=== PATIENT | female | born 1995 | race Caucasian/White ===

== ENCOUNTER → 2017-07-09 09:53 | Outpatient (CLI) | payer OTHER, SELFPAY ==
[2017-07-16 04:15] LABS: AFP MoM Value 1.14 (.); AFP Value-EIA 35.8 ng/mL (.); Comment Report (.); DIA MoM Value 1.21 (.); DIA Value-EIA 211.34 pg/mL (.); DSR (By Age) 1100 (.); DSR (Second Trimester) 7688 (.); Gestat. Age Based On As provided (.); Insulin Dep Diabetes No (.); Maternal Age At EDD 23.1 YEARS (.); hCG MoM 1.36 (.); hCG Value 51890 mIU/mL (.)
== END ==
PROVIDERS: Family Provider Nurse Practitioner Adult Health; PCP Nurse Practitioner Adult Health; Visit Provider Nurse Practitioner Women's Health
DX: Z34.90 Encounter for supervision of normal pregnancy, unspecified, unspecified trimester (principal)
CPT/HCPCS: 36415; 82105; 82677; 84702; 86336

== ENCOUNTER → 2017-08-03 | Outpatient (CLI) | payer OTHER, SELFPAY ==
--- NOTE | 2017-08-03 12:24 | US_ITS ---
STUDY: SECOND AND THIRD TRIMESTER OBSTETRICAL ULTRASOUND REASON FOR EXAM: Female, 21 years old. Routine survey. LMP: March 16, 2017. TECHNIQUE: Transabdominal PRIOR ULTRASOUND: None. FINDINGS: There is a single intrauterine fetus. The fetus is in a cephalic presentation. There is demonstrated cardiac activity with a heart rate of 142 bpm. There is a normal amniotic fluid volume. The largest amniotic fluid pocket measures 7.0 cm x 6.6 cm. The placenta is posterior in location and is not low lying. There are Grade 0 placental changes. The cervix measures 4.0 cm in length. The adnexal regions are not visualized. BIOMETRY: BPD: 4.61 cm: 20 weeks, 0 days HC: 17.21 cm: 19 weeks, 6 days AC: 14.24 cm: 19 weeks, 5 days FL: 3.13 cm: 19 weeks, 6 days CI: 79% FL/BPD: 68% FL/HC: FL/AC: 22% HC/AC: 1.21 age by current US: 19 weeks, 6 days. EASTON by current US: December 22, 2017. Estimated weight: 306 grams, +/- 45 grams, 28 %. Age by LMP: 20 weeks, 0 days. EASTON by LMP: December 21, 2017.. ANATOMY: Gender: Male Cranium: Normal lateral ventricles. Normal choroid plexus. Normal cerebellum. Normal cisterna magna. Normal face, nose and lips. Chest: Normal 4-chamber heart. Abdomen/Pelvis: Normal diaphragm. Normal stomach. Normal abdominal wall. Normal cord insertion. Normal 3 vessel cord. Normal kidneys. Normal bladder. Spine: Normal cervical spine. Normal thoracic spine. Normal lumbar spine. Normal sacrum. Extremities: Normal bilateral upper extremities. Normal bilateral lower extremities. US/OB Anatomy Scan IMPRESSION: Single live intrauterine gestation with a mean gestational age of 19 weeks and 6 days. Electronically Signed: Jewel Carvajal MD at 11:10 EST Tel [phone], Service support ,
== END | disposition home or self-care (01) ==
LOC: USHP 12:22
PROVIDERS: Family Provider Nurse Practitioner Adult Health; PCP Nurse Practitioner Adult Health; Visit Provider Nurse Practitioner Women's Health
DX: Z34.90 Encounter for supervision of normal pregnancy, unspecified, unspecified trimester (principal); Z3A.00 Weeks of gestation of pregnancy not specified
CPT/HCPCS: 76805

== ENCOUNTER → 2017-09-28 08:51 | Outpatient (CLI) | payer OTHER, SELFPAY ==
[2017-09-28 10:48] LABS: Absolute Lymphocyte Count 1.21 X10^3/ul (0.83-4.51); Absolute Neutrophil Count 7.5 X10^3/uL (2.0-7.7); Basophil# 0.04 X10^3/uL; Basophil% 0.4 % (0-1); Eosinophil# 0.09 X10^3/uL; Eosinophils% 0.9 % (0-5); Hematocrit 34.8 % (37-47); Hemoglobin 11.6 g/dl (12.0-15.0); Lymphocyte # 1.21 X10^3/ul (4.0); Lymphocyte % 12.2 % (19-41); Mean Corp Hgb Conc 33.3 g/gl (32-36); Mean Corpuscular Hgb 29.2 pg (27.0-32.0); Mean Corpuscular Volume 87.7 fL (81-99); Mean Platelet Vol. 10.7 fl (6.2-12.0); Monocyte# 0.92 X10^3/uL; Monocyte% 9.3 % (0-10); Neutrophil # 7.53 X10^3/uL (2.7-7.7); Platelet Count 231 K/mm3 (150-450); RBC Distribution Width CV 12.8 % (11.6-14.6); RBC Distribution Width SD 39.6 fl (35.1-43.9); Red Blood Count 3.97 M/mm3 (4.2-5.4); White Blood Count 9.9 K/mm3 (4.4-11.0)
[2017-09-28 10:49] LABS: POSITIVE COUNT NO; POSITIVE DIFFERENTIAL NO; POSITIVE MORPHOLOGY NO
[2017-09-28 11:19] LABS: Glucose Challenge Gest 1H 50g 122 mg/dL (70-140)
== END ==
PROVIDERS: Family Provider Nurse Practitioner Adult Health; PCP Nurse Practitioner Adult Health; Visit Provider Obstetrics & Gynecology
DX: Z34.02 Encounter for supervision of normal first pregnancy, second trimester (principal)
CPT/HCPCS: 36415; 82950; 85025; 86850; 86900

== ENCOUNTER → 2017-11-23 14:52 | Outpatient (CLI) | payer OTHER, SELFPAY ==
[2017-11-23 18:05] LABS: Group B Strep DNA By PCR Negative (Negative); Internal Control PASS; Probe Check PASS; Specimen Processing Control PASS
== END ==
PROVIDERS: Family Provider Nurse Practitioner Adult Health; PCP Nurse Practitioner Adult Health; Visit Provider Obstetrics & Gynecology
DX: Z34.90 Encounter for supervision of normal pregnancy, unspecified, unspecified trimester (principal)
CPT/HCPCS: 87081; 87653

== ENCOUNTER 2017-12-07 12:05 | Outpatient (CLI) | payer OTHER, SELFPAY ==
[2017-12-07 13:07] LABS: Hematocrit 35.2 % (37-47); Hemoglobin 11.3 g/dl (12.0-15.0); Mean Corp Hgb Conc 32.1 g/gl (32-36); Mean Corpuscular Hgb 25.9 pg (27.0-32.0); Mean Corpuscular Volume 80.7 fL (81-99); Mean Platelet Vol. 11.2 fl (6.2-12.0); Platelet Count 233 K/mm3 (150-450); RBC Distribution Width CV 13.6 % (11.6-14.6); Red Blood Count 4.36 M/mm3 (4.2-5.4); White Blood Count 9.1 K/mm3 (4.4-11.0)
[2017-12-07 13:12] LABS: Scan Indicated on CBC? Y/N NO
[2017-12-07 13:13] LABS: Partial Thromboplast Time 25.9 Seconds (24.1-36.2); Prothrombin Time (Protime)PT. 12.8 SECONDS (11.7-14.9)
[2017-12-07 13:16] LABS: AST(SGOT) 18 U/L (15-37); Alanine Aminotransfer ALT/SGPT 15 U/L (13-56); Creatinine, Serum 0.61 mg/dL (0.55-1.02); EST Glomerular Filtration Rate 129 mL/min (>60); Est Glom Filt Rate - Afr Amer 157 mL/min (>60); Estimated Creatinine Clearance 0.19 ml/min; Uric Acid 5.4 mg/dL (2.6-6.0)
[2017-12-07 13:21] LABS: Protein, Urine (Random) < 6.0 mg/dL (<11.9)
--- NOTE | 2017-12-10 02:49 | OB.TRI.NOTE ---
History of Present Illness Date of Service: 12/07/17 Was patient seen by the physician?: No Reason For Visit: ELEVATED BP Allergies No Known Allergies Allergy (Verified 12/07/17 12:35) - Pertinent Past Medical History Medical History: Past Medical History (Last Reviewed 12/07/17 @ 11:23 by Kaylah Graff) Frequent headaches Migraine Surgical History: Past Surgical History (Last Reviewed 12/07/17 @ 11:23 by Kaylah Graff) Adnoids History of tonsillectomy History of wisdom tooth extraction, class II edentulism NST - FHR Rate Baby A Baseline: 130 Variability:: Moderate Accelerations:: 15 x 15 Decelerations:: None NST Reactive:: Yes FHR Category:: Category I Uterine Activity:: none Impression/Plan initially elevated bps repeat normal stable no cerivlca change dc home
== END 2017-12-07 14:30 | disposition home or self-care (01) ==
LOC: WPOUT 12:07 → WP 12:07
PROVIDERS: Family Provider Nurse Practitioner Adult Health; PCP Nurse Practitioner Adult Health; Visit Provider Obstetrics & Gynecology
DX: O26.899 Other specified pregnancy related conditions, unspecified trimester (principal); Z3A.00 Weeks of gestation of pregnancy not specified; R03.0 Elevated blood-pressure reading, without diagnosis of hypertension
CPT/HCPCS: 36415; 59025; 59050; 82565; 82570; 84156; 84450; 84460; 84550; 85027; 85610; 85730; 99218; A4216; G0378

== ENCOUNTER 2017-12-11 18:00 | Inpatient (IN) | payer OTHER, SELFPAY ==
[2017-12-11 18:29] VITALS: BMI 32.2
[2017-12-11] MEDS: Lactated Ringers 1,000 ML 50 ML IV ×2 (18:35→20:02)
[2017-12-11 18:52] LABS: Hematocrit 34.9 % (37-47); Hemoglobin 11.4 g/dl (12.0-15.0); Mean Corp Hgb Conc 32.7 g/gl (32-36); Mean Corpuscular Volume 79.5 fL (81-99); Mean Platelet Vol. 10.9 fl (6.2-12.0); Platelet Count 239 K/mm3 (150-450); RBC Distribution Width CV 13.8 % (11.6-14.6); RBC Distribution Width SD 39.4 fl (35.1-43.9); Red Blood Count 4.39 M/mm3 (4.2-5.4); White Blood Count 15.9 K/mm3 (4.4-11.0)
[2017-12-11 18:53] LABS: Scan Indicated on CBC? Y/N NO
[2017-12-11] MEDS: Ondansetron 4 MG/2 ML Vial IV (19:00)
[2017-12-11] MEDS: fentaNYL-bupivacaine (epidural) 100 ML BAG EPIDURAL (19:50)
[2017-12-11] MEDS: Mag Hydrox/Al Hydrox/Simeth 30 ML UDC PO ×2 (20:18→23:25)
--- NOTE | 2017-12-11 21:14 | PCM.HP.OB ---
- Problem List (1) Contraception management Status: Acute Qualifiers: Comment: condoms (2) Rh negative status during Status: Acute Qualifiers: Comment: rhogam PRN and at 28 weeks (3) Supervision of normal Status: Acute Qualifiers: Comment: PRR EASTON 12/21/17 boy Nishant Cristian History Date of Admission: 12/11/17 Final EASTON: 12/21/17 Gestational age: 38 Weeks and 4 Days History of this : This is a 22 year-old, at 38 weeks gestational age presents IAL 6 cm Medical History: Medical History (Last Reviewed 12/07/17 @ 11:23 by Kaylah Graff) Frequent headaches R51 Migraine G43.909 Surgical History: Surgical History (Last Reviewed 12/07/17 @ 11:23 by Kaylah Graff) Adnoids History of tonsillectomy Z90.89 History of wisdom tooth extraction, class II edentulism K08.492 Allergies No Known Allergies Allergy (Verified 12/07/17 12:35) Home Medications: Home Medications vitamin,calcium,cxnuigky-vujc-vgfcb acid tablet 1 tab PO QDAY 05/21/17 Ranitidine HCl [Acid Control] 150 mg PO BID 12/11/17 Smoking Status: Never smoker Alcohol: None Number of Fetus(es): 1 Heart Tracin mod viktor reactive no decels cat I TOCO Analysis: q2-3 History Past Pregnancies: Past Pregnancies Delivery Date Name GA/Weeks Outcome Route Weight Infant Gender Labor Length Anesthesia Delivery Location Provider FOB Labs: Mom[facility] Labs & Results 12/11/17 12/11/17 18:35 18:35 WBC 15.9 H RBC 4.39 Hgb 11.4 L Hct 34.9 L MCV 79.5 L MCH 26.0 L MCHC 32.7 RDW 13.8 RDW Differential 39.4 Plt Count 239 MPV 10.9 Blood Type A NEGATIVE Antibody Screen NEGATIVE Course Did the patient receive Yes care? Labs Blood Type: A RH: NEGATIVE RPR/VDRL/Syphilis Nonreactive Rubella status Immune HbSAg Negative Date Done: 05/17/17 Chlamydia Negative Gonorrhea Negative HIV/AIDS Non-Reactive Group B Strep: Negative Current Obstetrical History Gestational Diabetes No Incompetent Cervix No Infertility No IUGR No Macrosomia No Hypertension/Pre-eclampsia No Placenta Previa/Abruption No PTL/PROM No Uterine anomaly No Oligohydramnios No Polyhydramnios No Multiple gestation No Past Medical History Asthma No Diabetes No Hypertension No Heart disease No Mitral valve prolapse No Neurologic/Seizure disorder/ No Migraines Kidney disease No Liver disease No Varicosities No Clotting disorders/Hx of DVT No Thyroid Dysfunction No Other medical diseases No Psychiatric disorders No Major trauma No Abnormal PAP smear No Sleep apnea No Mammogram in the last 2 years No Social History Marital Status: Alleged father Cristian Hx Smoking No Smoking Status Never smoker How long have you used no substances (years)? What date/time did you last no use any of the above? Expected Infant Delivery Method: Spontaneous Vaginal Review of Systems Constitutional: Denies: Fever, Malaise Eyes: Denies: Blurred vision, Vision Change HEENT: Denies: Head Aches, Visual Changes Cardiovascular: Denies: Chest Pain, Palpitations Respiratory: Denies: Cough, Shortness of Breath, Wheezing Gastrointestinal: Denies: Abdominal Pain, Diarrhea, Nausea, Vomiting Genitourinary: Denies: Dysuria, Hematuria Musculoskeletal: Denies: Joint Pain, Muscle pain Skin: Denies: Lesions, Rash Neurological: Denies: Blurred vision, Focal weakness, Headaches Psychiatric: Denies: Anxiety, Depression Endocrine: Denies: Heat/ Cold Intolerance Hematologic/ Lymphatic: Denies: Easy Bruising, Easy Bleeding Physical Exam General: Alert, Cooperative, No apparent distress HEENT: Atraumatic, Normocephalic. Negative for: Thyromegaly, Lymphadenopathy Cardiovascular: Regular rate Lungs: Normal air movement Abdomen: Soft, Non Tender, Gravid Neurological: Deep Tendon Reflexes 2+/4 and Symmetrical, Neuro grossly intact. Negative for: Clonus [employer]: Normal external genitalia. Negative for: Vulvar lesions Estimated gestational size: Appropriate for gestational size Presentation: Cephalic Assessment/Plan All Active Problems (Last Reviewed 12/07/17 @ 11:23 by Kaylah Graff) Segmental and somatic dysfunction of sacral region (Acute) Contraception management (Acute) Segmental and somatic dysfunction of thoracic region (Acute) Segmental and somatic dysfunction of lumbar region (Acute) Segmental and somatic dysfunction of cervical region (Acute) Rh negative status during (Acute) Supervision of normal (Acute) This is a 22 year-old, at 38 weeks gestational age presents IAL exp management gbs neg epidural rh negative
[2017-12-12] MEDS: Oxytocin 30 units/NS 500 ml 30 UNITS/500 ML IV.SOLN 334 UNITS IV (00:55)
--- NOTE | 2017-12-12 01:16 | PCM.OB.VAG ---
- Problem List (1) Contraception management Status: Acute Qualifiers: Comment: condoms (2) Rh negative status during Status: Acute Qualifiers: Comment: rhogam PRN and at 28 weeks (3) Supervision of normal Status: Acute Qualifiers: Comment: PRR [place] 12/21/17 carmela Dillard Cristian Vaginal Delivery Maternal Presentation: Active Labor 22 yo @ 38w4d presetns IAL Amniotic Membrane Rupture Type: Artificial Amniotic Fluid Description: Clear Final EASTON: 12/21/17 Gestational age: 38 Weeks and 5 Days Date of Procedure: 12/12/17 Pre-Operative Diagnosis: ial Post-Operative Diagnosis: same Surgery/ Procedure Performed: Spontaneous Vaginal Delivery Type of Anesthesia: Epidural Description of Procedure: Patient began pushing and delivered the head in the RAFAEL presentation. The head was delivered atraumatically. The anterior and posterior shoulders delivered without complication followed by the rest of the and the was placed on the maternal abdomen. Delayed cord clamping was employed for approximately 60 seconds. Cord was clamped and cut and gentle traction was applied to the cord and the placenta delivered spontaneously immediately following it was noted to be intact with three-vessel cord. The perineum and vagina were inspected and noted to have a secodn laceration repaired in the usual fashion with 3-0 vicryl rapide. EBL was 300 cc. Patient and infant tolerated delivery well. Presentation: RAFAEL Placental Delivery Description: Spontaneous Placenta Disposition: [facility] Cord Vessel Description: 3 Vessels Cord Entanglement: None Estimated Blood Loss: 300 Infant A gender: Male Episiotomy Description: None Laceration: Perineal Extension/lac, 2nd degree Medications given after delivery: IV Pitocin Complications: None
[2017-12-12] MEDS: Oxytocin 30 units/NS 500 ml 30 UNITS/500 ML IV.SOLN 167 UNITS IV (01:25)
[2017-12-12] MEDS: Naproxen 250 MG Tablet PO (07:50)
[2017-12-12 07:58] VITALS: BP 111/53; PULSE 96; RESP 18; TEMP 37.1; O2SAT 95
--- NOTE | 2017-12-12 08:59 | NURSING ---
Patient up to the bathroom and called out that she was dizzy. Remained conscious but was transferred back to bed via wheelchair with staff assistance. Given 8 oz. apple juice and encouraged to eat breakfast before getting up again. Instructed patient to call for assistance when up the next time.
[2017-12-12] MEDS: Prenatal Vits Tablet 1 TABLET PO (09:58)
[2017-12-12] MEDS: Famotidine 20 MG Tablet PO ×2 (09:58→21:40)
[2017-12-12 12:00] VITALS: BP 106/60; PULSE 86; RESP 16; TEMP 36.3; O2SAT 99
[2017-12-12] MEDS: Acetaminophen 500 MG Tablet 1000 MG PO (12:58)
--- NOTE | 2017-12-12 13:04 | NURSING ---
Patient ambulating in room indepedently with no complaints of dizziness.
[2017-12-12 16:00] VITALS: BP 120/72; PULSE 73; RESP 16; TEMP 36.6; O2SAT 97
[2017-12-12 21:30] VITALS: BP 120/66; PULSE 84; RESP 16; TEMP 36.6
[2017-12-13 01:00] VITALS: BP 108/59; PULSE 74; RESP 18; TEMP 36.4
--- NOTE | 2017-12-13 07:59 | PCM.PN.OB ---
Subjective: No SOB, CP, nausea. - Physical Exam General: Alert, Oriented x3 Abdomen: Soft, Non Tender, - - FF below U Vital Signs Temp Pulse Resp BP Pulse Ox 97.6 F L 74 18 108/59 L 97 12/13/17 01:00 12/13/17 01:00 12/13/17 01:00 12/13/17 01:00 12/12/17 16:00 Oxygen Delivery Method Room Air Weight: 187 lb 9.814 oz Body Mass Index (BMI) 32.2 Intake and Output for Last 24 Hours 12/11/17 12/12/17 12/13/17 23:59 23:59 23:59 Intake Total 1865 / 1865 Output Total 850 / 850 Balance 1015 / 1015 Medical Necessity - Tobacco Use Smoking Status: Never smoker Assessment/Plan All Active Problems (Last Reviewed 12/07/17 @ 11:23 by Kaylah Graff) Segmental and somatic dysfunction of sacral region (Acute) Contraception management (Acute) Segmental and somatic dysfunction of thoracic region (Acute) Segmental and somatic dysfunction of lumbar region (Acute) Segmental and somatic dysfunction of cervical region (Acute) Rh negative status during (Acute) Supervision of normal (Acute) PPD #1 Doing well. Routine care. RH neg.
[2017-12-13] MEDS: Famotidine 20 MG Tablet PO ×2 (08:27→20:56)
[2017-12-13] MEDS: Prenatal Vits Tablet 1 TABLET PO (08:52)
[2017-12-13 08:54] VITALS: BP 125/75; PULSE 85; RESP 16; TEMP 36.6; O2SAT 97
[2017-12-13] MEDS: Senna/Docusate Sodium 1 Tablet PO (09:01)
[2017-12-13 12:45] VITALS: BP 131/74; PULSE 88; RESP 16; TEMP 36.5; O2SAT 97
[2017-12-13 20:50] VITALS: BP 135/66; PULSE 87; RESP 16; TEMP 36.9
[2017-12-13] MEDS: Acetaminophen 500 MG Tablet 1000 MG PO (20:56)
[2017-12-14 02:30] VITALS: BP 116/60; PULSE 71; RESP 16; TEMP 36.4
[2017-12-14 08:00] VITALS: BP 124/73; PULSE 93; RESP 18; TEMP 36.9
[2017-12-14] MEDS: Senna/Docusate Sodium 1 Tablet PO (10:10)
[2017-12-14] MEDS: Naproxen 250 MG Tablet PO (10:10)
[2017-12-14] MEDS: Prenatal Vits Tablet 1 TABLET PO (10:10)
--- NOTE | 2017-12-14 11:09 | PCM.PN.OB ---
Subjective: No SOB, CP, nausea. - Physical Exam General: Alert, Oriented x3 Abdomen: Soft, Non Tender, - - FF below U Vital Signs Temp Pulse Resp BP Pulse Ox 98.5 F 93 18 124/73 H 97 12/14/17 08:00 12/14/17 08:00 12/14/17 08:00 12/14/17 08:00 12/13/17 12:45 Oxygen Delivery Method Room Air Weight: 187 lb 9.814 oz Body Mass Index (BMI) 32.2 Intake and Output for Last 24 Hours 12/12/17 12/13/17 12/14/17 23:59 23:59 23:59 Intake Total 1865 / 1865 Output Total 850 / 850 Balance 1015 / 1015 Medical Necessity - Tobacco Use Smoking Status: Never smoker Assessment/Plan All Active Problems (Last Reviewed 12/07/17 @ 11:23 by Kaylah Graff) Segmental and somatic dysfunction of sacral region (Acute) Contraception management (Acute) Segmental and somatic dysfunction of thoracic region (Acute) Segmental and somatic dysfunction of lumbar region (Acute) Segmental and somatic dysfunction of cervical region (Acute) Rh negative status during (Acute) Supervision of normal (Acute) PPD #2: Doing well. Routine care. Home today
--- NOTE | 2017-12-14 11:10 | PCM.DCVAG ---
Additional Instructions: If you experience any of the following, contact your healthcare provider. Bleeding that soaks a pad every hour for 2 hours Fever 100.4 or higher Unrelieved incision or abdominal pain Swelling, redness, discharge or bleeding from your incision or episiotomy site Your incision begins to separate Problems urinating (including inability to urinate or burning while urinating). Visual changes Severe headache Flu-like symptoms Pain or redness in one of both of your breasts Pain, warmth, tenderness or swelling in your legs, especially the calf area Frequent nausea and vomiting Symptoms of depression or anxiety If you experience any of the following, call 911 or go to the nearest Emergency Room. Chest pain Problems breathing Seizure activity Partial or complete paralysis of a body part, slurred speech, weakness or drooping of the face, or a sudden inability to walk or hold your balance Allergies/Adverse Reactions: Allergies No Known Allergies Allergy (Verified 12/07/17 12:35) Medications to take at Discharge vitamin,calcium,umduakei-iapu-atjzm acid tablet 1 tab PO QDAY 05/21/17 Ranitidine HCl [Acid Control] 150 mg PO BID 12/11/17 Norethindrone [Shanthi] 0.35 mg PO DAILY #28 tab 12/14/17 Primary Care Physician: Radha Cardenas [Primary Care Provider] - Test Results:
--- NOTE | 2017-12-14 11:14 | DCINST_ITS ---
Additional Instructions: If you experience any of the following, contact your healthcare provider. * Bleeding that soaks a pad every hour for 2 hours * Fever 100.4 or higher * Unrelieved incision or abdominal pain * Swelling, redness, discharge or bleeding from your incision or episiotomy site * Your incision begins to separate * Problems urinating (including inability to urinate or burning while urinating) . * Visual changes * Severe headache * Flu-like symptoms * Pain or redness in one of both of your breasts * Pain, warmth, tenderness or swelling in your legs, especially the calf area * Frequent nausea and vomiting * Symptoms of depression or anxiety If you experience any of the following, call 911 or go to the nearest Emergency Room. * Chest pain * Problems breathing * Seizure activity * Partial or complete paralysis of a body part, slurred speech, weakness or drooping of the face, or a sudden inability to walk or hold your balance Allergies/Adverse Reactions: Allergies No Known Allergies Allergy (Verified 12/07/17 12:35) Medications to take at Discharge vitamin,calcium,tnnxvkea-kxvt-pcysb acid tablet 1 tab PO QDAY 05/21/17 Ranitidine HCl [Acid Control] 150 mg PO BID 12/11/17 Norethindrone [Shanthi] 0.35 mg PO DAILY #28 tab 12/14/17 Primary Care Physician: Radha Cardenas [Primary Care Provider] - Test Results:
[2017-12-14] MEDS: Famotidine 20 MG Tablet PO (11:52)
[2017-12-14 14:20] VITALS: BP 130/77; PULSE 92; RESP 18; TEMP 36.8
== END 2017-12-14 15:55 | disposition home or self-care (01) | DRG 775 ==
PROVIDERS: Admitting Provider Obstetrics & Gynecology; Family Provider Nurse Practitioner Adult Health; PCP Nurse Practitioner Adult Health; Visit Provider Obstetrics & Gynecology
DX: O26.899 Other specified pregnancy related conditions, unspecified trimester (principal); M99.01 Segmental and somatic dysfunction of cervical region; M99.02 Segmental and somatic dysfunction of thoracic region; M99.03 Segmental and somatic dysfunction of lumbar region; M99.04 Segmental and somatic dysfunction of sacral region; O70.1 Second degree perineal laceration during delivery; Z67.91 Unspecified blood type, Rh negative; Z3A.38 38 weeks gestation of pregnancy; Z37.0 Single live birth
CPT/HCPCS: 59050; 85027; 86850; 86900; 99218; J7120; G0378; J2405

== ENCOUNTER → 2020-02-15 16:42 | Outpatient (CLI) | payer OTHER, SELFPAY ==
[2020-02-15 14:01] VITALS: BMI 27.1
[2020-02-19 03:07] LABS: Chlamydia By Nucleic Acid AMP Negative (Negative)
[2020-02-19 07:56] LABS: Gonococcus By Nucleic Acid AMP Negative (Negative)
[2020-02-21 19:10] LABS: HPV Reflexed? NOT INDICATED
== END ==
PROVIDERS: PCP Obstetrics & Gynecology; Visit Provider Obstetrics & Gynecology
DX: Z12.4 Encounter for screening for malignant neoplasm of cervix (principal); Z11.3 Encounter for screening for infections with a predominantly sexual mode of transmission
CPT/HCPCS: 87491; 87591; 88175; G0145

== ENCOUNTER → 2020-02-28 08:25 | Outpatient (CLI) | payer OTHER, SELFPAY ==
[2020-02-15 14:01] VITALS: BMI 27.1
[2020-02-28 09:43] LABS: Absolute Lymphocyte Count 1.79 X10^3/uL (0.83-4.51); Absolute Neutrophil Count 6.5 X10^3/uL (2.0-7.7); Basophil# 0.03 X10^3/uL; Basophil% 0.3 % (0-1); Eosinophil# 0.14 X10^3/uL; Eosinophils% 1.6 % (0-5); Hematocrit 39.3 % (37-47); Hemoglobin 12.5 g/dL (12.0-15.0); Lymphocyte # 1.79 X10^3/ul (4.0); Mean Corp Hgb Conc 31.8 g/dL (32-36); Mean Corpuscular Hgb 26.2 pg (27.0-32.0); Mean Corpuscular Volume 82.4 fL (81-99); Mean Platelet Vol. 10.4 fl (6.2-12.0); Monocyte# 0.45 X10^3/uL; NRBC Flagged by Analyzer 0 % (0-5); Neutrophil # 6.51 X10^3/uL (2.7-7.7); Neutrophil % 72.5 % (47-70); Platelet Count 268 K/mm3 (150-450); RBC Distribution Width SD 42.1 fl (35.1-43.9); Red Blood Count 4.77 M/mm3 (4.2-5.4)
[2020-02-28 10:47] LABS: HIV - WCH Non-Reactive (Nonreactive); Hepatitis B Surface Antigen Non-Reactive (Nonreactive); Hepatitis C Antibody Non-Reactive (Nonreactive); Rubella IgG 38.4 IU/mL
[2020-02-29 04:31] LABS: Rapid Plasmin Reagin (RPR) NONREACTIVE (NONREACTIVE)
== END ==
PROVIDERS: PCP Nurse Practitioner Adult Health; Referring Provider Obstetrics & Gynecology; Visit Provider Obstetrics & Gynecology
DX: Z34.90 Encounter for supervision of normal pregnancy, unspecified, unspecified trimester (principal)
CPT/HCPCS: 36415; 85025; 86592; 86703; 86762; 86803; 86850; 86900; 86901; 87340

== ENCOUNTER → 2020-03-13 | Outpatient (CLI) | payer OTHER, SELFPAY ==
[2020-03-13 11:10] VITALS: BMI 27.1
[2020-03-13 13:35] LABS: Amphetamine Urine VISTA NEGATIVE (<1000 ng/mL); Barbiturate Urine VISTA NEGATIVE (< 200 ng/mL); Benzodiazepine Urine VISTA NEGATIVE (< 200 ng/mL); Cocaine Urine VISTA NEGATIVE (< 300 ng/mL); Ecstacy Urine VISTA NEGATIVE (< 500 ng/mL); Methadone Urine VISTA NEGATIVE (< 300 ng/mL); PCP Urine VISTA NEGATIVE (< 25 ng/mL); THC Urine VISTA NEGATIVE (< 50 ng/mL); Vista UDS pH Range 6
== END | disposition home or self-care (01) ==
LOC: LABSPEC 12:20
PROVIDERS: PCP Nurse Practitioner Adult Health; Referring Provider Obstetrics & Gynecology; Visit Provider Obstetrics & Gynecology
DX: Z34.90 Encounter for supervision of normal pregnancy, unspecified, unspecified trimester (principal)
CPT/HCPCS: 80307; 87086; 87088

== ENCOUNTER → 2020-05-08 | Outpatient (CLI) | payer OTHER, SELFPAY ==
[2020-05-08 11:19] VITALS: BMI 28.8
[2020-05-08 14:26] LABS: Amphetamine Urine VISTA NEGATIVE (<1000 ng/mL); Barbiturate Urine VISTA NEGATIVE (< 200 ng/mL); Benzodiazepine Urine VISTA NEGATIVE (< 200 ng/mL); Cocaine Urine VISTA NEGATIVE (< 300 ng/mL); Ecstacy Urine VISTA NEGATIVE (< 500 ng/mL); Methadone Urine VISTA NEGATIVE (< 300 ng/mL); PCP Urine VISTA NEGATIVE (< 25 ng/mL); THC Urine VISTA NEGATIVE (< 50 ng/mL); Vista UDS pH Range 7
[2020-05-08 19:11] LABS: Chlamydia Trachomatis by PCR Negative (Negative); Neisserai gonorrhoeae by PCR Negative (Negative); Probe Check PASS; Sample Adequacy Control PASS; Specimen Processing Control PASS
== END | disposition home or self-care (01) ==
LOC: LABSPEC 13:18
PROVIDERS: PCP Nurse Practitioner Adult Health; Referring Provider Obstetrics & Gynecology; Visit Provider Obstetrics & Gynecology
DX: Z34.90 Encounter for supervision of normal pregnancy, unspecified, unspecified trimester (principal)
CPT/HCPCS: 80307; 87491; 87591

== ENCOUNTER → 2020-07-03 09:07 | Outpatient (CLI) | payer OTHER, SELFPAY ==
[2020-06-05 09:56] VITALS: BMI 29.4
[2020-07-03 09:29] LABS: Absolute Lymphocyte Count 1.47 X10^3/uL (0.83-4.51); Absolute Neutrophil Count 5.7 X10^3/uL (2.0-7.7); Basophil# 0.03 X10^3/uL; Basophil% 0.4 % (0-1); Eosinophil# 0.12 X10^3/uL; Eosinophils% 1.5 % (0-5); Hematocrit 30.5 % (37-47); Lymphocyte # 1.47 X10^3/ul (4.0); Lymphocyte % 18.5 % (19-41); Mean Corp Hgb Conc 32.8 g/dL (32-36); Mean Corpuscular Volume 82.4 fL (81-99); Mean Platelet Vol. 10.7 fl (6.2-12.0); Monocyte# 0.47 X10^3/uL; Monocyte% 5.9 % (0-10); NRBC Flagged by Analyzer 0 % (0-5); Neutrophil # 5.66 X10^3/uL (2.7-7.7); Neutrophil % 71.4 % (47-70); Platelet Count 239 K/mm3 (150-450); RBC Distribution Width CV 13.3 % (11.6-14.6); White Blood Count 7.9 K/mm3 (4.4-11.0)
[2020-07-03 10:03] LABS: Glucose Challenge Gest 1H 50g 149 mg/dL (70-140)
== END ==
PROVIDERS: PCP Nurse Practitioner Adult Health; Referring Provider Nurse Practitioner Women's Health; Visit Provider Nurse Practitioner Women's Health
DX: Z34.90 Encounter for supervision of normal pregnancy, unspecified, unspecified trimester (principal); Z13.1 Encounter for screening for diabetes mellitus
CPT/HCPCS: 36415; 82950; 85025; 86850; 86900; 86901; 87086; 87088

== ENCOUNTER → 2020-07-10 06:46 | Outpatient (CLI) | payer OTHER, SELFPAY ==
[2020-07-03 09:30] VITALS: BMI 29.9
[2020-07-10 08:01] LABS: Glucose GTT-Gestation. Fasting 92 mg/dL (<105)
[2020-07-10 08:30] LABS: Glucose GTT-Gestational 1 Hr 132 mg/dL (<190)
[2020-07-10 09:35] LABS: Glucose GTT-Gestational 2 Hr 97 mg/dL (<165)
[2020-07-10 11:05] LABS: Glucose GTT-Gestational 3 Hr 125 L (<145)
== END ==
PROVIDERS: PCP Nurse Practitioner Adult Health; Referring Provider Obstetrics & Gynecology; Visit Provider Obstetrics & Gynecology
DX: O99.810 Abnormal glucose complicating pregnancy (principal); Z3A.00 Weeks of gestation of pregnancy not specified
CPT/HCPCS: 36415; 82951; 82952

== ENCOUNTER → 2020-08-16 08:38 | Outpatient (CLI) | payer OTHER, SELFPAY ==
[2020-07-31 09:56] VITALS: BMI 30.7
[2020-08-16 09:18] LABS: Absolute Lymphocyte Count 1.74 X10^3/uL (0.83-4.51); Absolute Neutrophil Count 6.3 X10^3/uL (2.0-7.7); Basophil# 0.03 X10^3/uL; Basophil% 0.3 % (0-1); Eosinophils% 1.1 % (0-5); Hematocrit 30.9 % (37-47); Hemoglobin 9.3 g/dL (12.0-15.0); Lymphocyte # 1.74 X10^3/ul (4.0); Lymphocyte % 19.2 % (19-41); Mean Corp Hgb Conc 30.1 g/dL (32-36); Mean Corpuscular Volume 79.6 fL (81-99); Mean Platelet Vol. 10.7 fl (6.2-12.0); Monocyte# 0.57 X10^3/uL; Monocyte% 6.3 % (0-10); NRBC Flagged by Analyzer 0 % (0-5); Neutrophil # 6.29 X10^3/uL (2.7-7.7); Neutrophil % 69.7 % (47-70); Platelet Count 230 K/mm3 (150-450); RBC Distribution Width CV 14.6 % (11.6-14.6); Red Blood Count 3.88 M/mm3 (4.2-5.4)
== END ==
PROVIDERS: PCP Nurse Practitioner Adult Health; Referring Provider Obstetrics & Gynecology; Visit Provider Obstetrics & Gynecology
DX: O99.019 Anemia complicating pregnancy, unspecified trimester (principal); Z3A.00 Weeks of gestation of pregnancy not specified
CPT/HCPCS: 36415; 85025

== ENCOUNTER → 2020-08-28 | Outpatient (CLI) | payer OTHER, SELFPAY ==
[2020-08-28 11:03] VITALS: BMI 32.6
== END | disposition home or self-care (01) ==
LOC: LABSPEC 13:02
PROVIDERS: PCP Nurse Practitioner Adult Health; Visit Provider Obstetrics & Gynecology
DX: Z34.90 Encounter for supervision of normal pregnancy, unspecified, unspecified trimester (principal)
CPT/HCPCS: 87081

== ENCOUNTER → 2020-09-06 14:42 | Outpatient (CLI) | payer OTHER, SELFPAY ==
[2020-08-28 11:03] VITALS: BMI 32.6
[2020-09-06 13:58] VITALS: BMI 33.3
== END ==
PROVIDERS: Nurse Practitioner Women's Health; PCP Nurse Practitioner Adult Health; Visit Provider Obstetrics & Gynecology
DX: Z34.80 Encounter for supervision of other normal pregnancy, unspecified trimester (principal)
CPT/HCPCS: 87635; C9803; U0002

== ENCOUNTER 2020-09-12 01:18 | Inpatient (IN) | payer OTHER, SELFPAY ==
[2020-09-11 11:12] VITALS: BMI 33.3
[2020-09-12] VITALS (50 sets, daily range): BP systolic 98–137; BP diastolic 57–85; PULSE 64–100; RESP 16–18; TEMP 36.4–37.4; O2SAT 97–100; BMI 33.0
[2020-09-12] MEDS: Lactated Ringers 500 ML 999 ML IV (01:25)
[2020-09-12 01:43] LABS: Absolute Lymphocyte Count 2.08 X10^3/uL (0.83-4.51); Absolute Neutrophil Count 7.4 X10^3/uL (2.0-7.7); Basophil# 0.04 X10^3/uL; Basophil% 0.4 % (0-1); Eosinophil# 0.13 X10^3/uL; Eosinophils% 1.2 % (0-5); Hematocrit 29.3 % (37-47); Lymphocyte # 2.08 X10^3/ul (4.0); Lymphocyte % 19.2 % (19-41); Mean Corp Hgb Conc 30.7 g/dL (32-36); Mean Corpuscular Volume 74.9 fL (81-99); Mean Platelet Vol. 11.2 fl (6.2-12.0); Monocyte% 9.2 % (0-10); NRBC Flagged by Analyzer 0 % (0-5); Neutrophil # 7.38 X10^3/uL (2.7-7.7); Neutrophil % 68.1 % (47-70); Platelet Count 221 K/mm3 (150-450); RBC Distribution Width CV 15.4 % (11.6-14.6); Red Blood Count 3.91 M/mm3 (4.2-5.4); White Blood Count 10.8 K/mm3 (4.4-11.0)
[2020-09-12] MEDS: Lactated Ringers 1,000 ML 200 ML IV ×2 (02:00→07:04)
[2020-09-12] MEDS: fentaNYL-bupivacaine (epidural) 100 ML BAG EPIDURAL ×2 (02:52→07:02)
[2020-09-12] MEDS: Famotidine 20 MG Tablet 40 MG PO (04:27)
[2020-09-12] MEDS: Oxytocin 30 units/NS 500 ml 30 UNITS/500 ML IV.SOLN IV (04:30)
[2020-09-12] MEDS: Mag Hydrox/Al Hydrox/Simeth 30 ML UDC PO (06:15)
--- NOTE | 2020-09-12 07:50 | PCM.HPOB.BLA ---
- Problem List (1) Active labor Status: Acute (2) 36 weeks gestation of Status: Acute Comment: Scheduled 09/06 at 2:20pm (3) Abnormal glucose affecting Status: Acute Comment: NL 3gtt (4) Anemia affecting Status: Acute Qualifiers: Comment: Add Fe daily (5) Encounter for prophylactic administration of RhoGAM Status: Acute Comment: 07/03/20 (6) History of tetanus, diphtheria, and acellular pertussis booster vaccination (Tdap) Status: Acute Comment: 07/03/20 (7) Influenza vaccine administered Status: Acute Comment: 02/15/2020 SC (8) Lab test negative for COVID-19 virus Status: Acute (9) Negative GBS Status: Acute (10) Status: Acute Qualifiers: Comment: declined genetic, carrier, and ntd screening. nl anatomy. (11) Rh negative status during Status: Acute Qualifiers: Comment: rhogam PRN and given at 28 weeks. (12) Supervision of normal Status: Acute Qualifiers: Comment: PRR EASTON 09/21/19 boy Hilario MONTEIRO dillard Cristian (13) UTI in Status: Acute Qualifiers: Comment: tx 03/14; repeat negative History and Physical Date of Admission: 09/12/20 Intake Vital Signs 09/11/20 Height 5 ft 4 in 09/11/20 Weight: 194 lb 6 oz 09/11/20 BMI 33.3 09/11/20 BP 120/90 H Intake Visit Reasons: 38 WK OB Land[employer] Technician Required: No Is patient in pain?: No Allergies No Known Allergies Allergy (Verified 09/11/20 11:12) Medications prenat.vits,sana,[id number] 1 tab PO QDAY 05/21/17 [History Confirmed 09/11/20] famotidine 20 mg tablet 20 mg PO BID #60 tab 07/19/20 [Rx Confirmed 09/11/20] Last Menstral Period: 12/15/19 Zika: Zika virus screening: Negative : No PFSH PFSH Medical History Frequent headaches (Acute) Migraine (Acute) Surgical History H/O adenoidectomy (Acute) History of tonsillectomy (Acute) History of wisdom tooth extraction, class II edentulism (Acute) Family History Grandmother Diabetes Breast cancer Aunt Breast cancer Mother Diabetes Gestational Grandfather Colon cancer Social History (Updated 09/11/20 @ 11:[address] 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 Date Name GA/Weeks Outcome Route Bth Weight Infant Gen Labor Lgth Anesthesia Del Locatn Provider FOB Unknown 2017 Dillard 38 live - full term 7lbs Male 8 epidural [facility] Cristian Delivery Date: No complications to Jannie Loaiza HPI 38 WK OB: Details: SHIRLENE CALDERON is a 24 year old who presents for routine OB visit. OB Visit EASTON Calculator Estimated Delivery Date Method Current WG Current Estimate 09/20/20 LMP (Certain) 38w 5d Other Estimates 09/21/20 Ultrasound #1 38w 4d Expected Delivery Route/Plan Labor Preferences- CB/BF classes: no labor support person: Cristian labor intervention preferences: open to standard interventions pain management options preferred: epidural cut cord/dad catch: yes : yes PP control planned: pill discussed possible routes of delivery and associated risks: discussed possible delivery modalities and possible indications for each including R/B/A of , VAVD, FAVD and CS. questions answered. special requests: none Specific Issue/Plans flu vaccine: given tdap vaccine: given rhogam: given LARC form signed: given movement and labor precautions reviewed. Problem list reviewed and updated with the most current plan of care details and appropriate orders placed. Relevant counseling for the gestational age provided. Continue routine care and follow up unless otherwise noted in visit notes/problem list details Initial Weight: 158 lb Date EGA Weight BP Urine Prot Glucose FHR FuHt Pres Dilation Effaced St Visit Note 02/15/20 8w 6d 158 lb (+0 oz) 124/82 SM- CRL SM- CRL 1.5cm cons with lmp 03/13/20 12w 5d 160 lb 4 oz (+2 lb 4 oz) 118/68 Negative Negative 166 MH_no VB, LOF. Nausea improved. Anatomy US with MFM scheduled. 04/12/20 17w 0d 164 lb (+6 lb) 132/74 150 SM- no vb cramping 05/08/20 20w 5d 168 lb (+10 lb) 110/82 150 GP - no cramping or bleeding. Discussed precautions with previa. 06/05/20 24w 5d 171 lb 6 oz (+13 lb 6 oz) 116/66 Negative Negative 155 24 GP - no LOF, VB, DFM, ctx. Having a boy! Anatomy normal. GCT next visit. GP - no LOF, VB, DFM, ctx. Having a boy! Anatomy normal except previa noted - discussed repeat scan at 28w. GCT next visit. 07/03/20 28w 5d 174 lb 8 oz (+16 lb 8 oz) 104/58 Negative Negative 141 28 MH-No VB, LOF. Good FM. 28 wk labs. Larc. Rhogam, tdap. Anemic-start FE. MH-No VB, LOF. Good FM. 28 wk labs. Larc. Rhogam, tdap. Anemic-start FE. Rpt urine culture. Previa resolved. 07/19/20 31w 0d 175 lb (+17 lb) 136/72 Negative Negative 140 31 SM- no vb lof good fm no regular ctx 07/31/20 32w 5d 179 lb (+21 lb) 124/72 Negative Negative 140 32 GP - no LOF, VB, DFM, ctx. Has had 2 vasovagal episodes without loss of consciousness while showering. Discussed increased fluids. If continues, will consider cardiology. 08/16/20 35w 0d 186 lb (+28 lb) 134/62 Negative Negative 140 36 Cephalic SM- no vb lof good fm n oregular ctx 08/28/20 36w 5d 190 lb 2 oz (+32 lb 2 oz) 128/74 Negative Negative 140 37 Cephalic 4 60 -2 GP - no LOF, VB, DFM, regular ctx. GBS done today. COVID testing with next visit. 09/06/20 38w 0d 194 lb (+36 lb) 134/88 Negative Negative 135 38 Cephalic 5 70 -2 GP - no LOF, VB, DFM, ctx. Membranes swept today. 09/11/20 38w 5d 194 lb 6 oz (+36 lb 6 oz) 120/90 Negative Negative 135 39 Cephalic 5 70 -2 GP - no LOF, VB, DFM, ctx. Scheduled for IOL in am on 09/13 if no labor before then. ACOG First Trimester First Trimester: Desire for , Alcohol, Illicit/Recreational Drug/Substance Use, Intimate Partner Violence, Barriers to care, Unstable Housing, Communication Barriers, Environmental/Work Hazards, Anticipated Course of Care, Toxoplasmosis Precations, Use of Any medications, Sexual activity, Exercise, Dental Care, Sauna/Hot tub use, Seat Belt use, Childbirth classes/Hospital facilities, , Travel, Indications for US and Screening for Aneuploidy; discussed Tobacco Cessation Diagnostics Diagnostics Diagnostics Blood Type A NEGATIVE 07/03/20 Antibody Screen NEGATIVE 07/03/20 Gest Glucose Tolerance MG/DL 07/10/20 Glucose 1 Hr 50 gm 149 mg/dL (70-140) H 07/03/20 Hgb 9.3 g/dL (12.0-15.0) L 08/16/20 Hct 30.9 % (37-47) L 08/16/20 Details: HIV: Urine Culture: Sequential Screen: NIPT Screen: ROS Const Reports system reviewed and no additional complaints, except as docu Eyes Reports system reviewed and no additional complaints, except as docu ENT Reports system reviewed and no additional complaints, except as docu Card Reports system reviewed and no additional complaints, except as docu Resp Reports system reviewed and no additional complaints, except as docu GI Reports system reviewed and no additional complaints, except as docu Reports system reviewed and no additional complaints, except as docu, Denies abnormal vaginal bleeding, Denies painful urination, Denies pelvic pain, Denies vaginal discharge, Denies vaginal odor, Denies vaginal itching Musc Reports system reviewed and no additional complaints, except as docu Skin/Breast Reports system reviewed and no additional complaints, except as docu Neuro Yes system reviewed and no additional complaints, except as docu Psych Reports system reviewed and no additional complaints, except as docu Endo Reports system reviewed and no additional complaints, except as docu Exam Const General: cooperative, healthy appearing, comfortable, no acute distress, well developed, well groomed Nutritional Appearance: average body habitus, well nourished Orientation: alert, awake, oriented x3 HENOH Head: normal to inspection, normocephalic, atraumatic Eyes Pupils: PERRL, accommodation normal Resp Effort & Inspection: normal respiratory effort, able to speak in complete sentences, symmetric chest movement Cardio Rate: regular rate GI Palpation: soft, no guarding, no masses, nontender Skin General: no rashes or lesions noted, elasticity normal, turgor normal Neuro General: alert, awake, oriented x3 Cranial Nerves: CN's II-XI intact bilaterally, sense of smell intact, PERRL, accommodation normal, EOM intact bilaterally Speech: speech normal Gait: normal gait Psych Appearance: grossly normal, well kempt Mental Status: mental status grossly normal Mood: congruent mood Affect: normal affect Speech and Movement: speech and movement normal Attitude: cooperative Thought Process: normal Thought Content: normal Judgment: judgment good Results POC Urinalysis 2 Dip (Clinic) Office Urine Glucose Negative Last Edit by Belem Szymanski on 09/11/20 11:23 Office Urine Protein Negative Last Edit by Belem Szymanski on 09/11/20 11:23 Assessment & Plan Problems 1. Lab test negative for COVID-19 virus Z03.818 2. Negative GBS 3. 36 weeks gestation of Z3A.36 Scheduled 09/06 at 2:20pm 4. Abnormal glucose affecting O99.810 NL 3gtt 5. Encounter for prophylactic administration of RhoGAM Z29.13 07/03/20 6. History of tetanus, diphtheria, and acellular pertussis booster vaccination (Tdap) Z92.29 07/03/20 7. Anemia affecting in third trimester O99.013 Add Fe daily 8. Urinary tract infection in mother during third trimester of O23.43 tx 03/14; repeat negative 9. Influenza vaccine administered Z23 02/15/2020 SC 10. Rh negative status during in third trimester O26.893 rhogam PRN and given at 28 weeks. 11. 38 weeks gestation of Z3A.38 declined genetic, carrier, and ntd screening. nl anatomy. 12. Encounter for supervision of other normal in third trimester Z34.83 PRR EASTON 09/21/19 boy Hilario MONTEIRO eleanor Cristian Patient presents IAL, plan expectant management for , pitocin/AROM PRN if needed. Pain management: plans epidural. GBS negative Management of any complications: none I have reviewed the [facility] and made any clinically relevant updates. UPDATE- I have seen the patient and performed any clinically relevant updates to the history and physical exam. Molly Vaughan MD
[2020-09-12] MEDS: Oxytocin 30 units/NS 500 ml 30 UNITS/500 ML IV.SOLN 334 UNITS IV (10:35)
--- NOTE | 2020-09-12 12:26 | PCM.OPRPT ---
Problem List (1) Active labor Status: Acute (2) 36 weeks gestation of Status: Acute Comment: Scheduled 09/06 at 2:20pm (3) Abnormal glucose affecting Status: Acute Comment: NL 3gtt (4) Anemia affecting Status: Acute Qualifiers: Comment: Add Fe daily (5) Encounter for prophylactic administration of RhoGAM Status: Acute Comment: 07/03/20 (6) History of tetanus, diphtheria, and acellular pertussis booster vaccination (Tdap) Status: Acute Comment: 07/03/20 (7) Influenza vaccine administered Status: Acute Comment: 02/15/2020 SC (8) Lab test negative for COVID-19 virus Status: Acute (9) Negative GBS Status: Acute (10) Status: Acute Qualifiers: Comment: declined genetic, carrier, and ntd screening. nl anatomy. (11) Rh negative status during Status: Acute Qualifiers: Comment: rhogam PRN and given at 28 weeks. (12) Supervision of normal Status: Acute Qualifiers: Comment: PRR EASTON 09/21/19 boy Hilario webster Cristian (13) UTI in Status: Acute Qualifiers: Comment: tx 03/14; repeat negative Vaginal Delivery Maternal Presentation: Active Labor 24-year-old at 38 weeks gestation admitted in active labor. Patient was augmented with artificial rupture membranes and Pitocin. Amniotic Membrane Rupture Type: Artificial Amniotic Fluid Description: Clear Final EASTON: 09/20/20 Gestational age: 38 Weeks and 6 Days Date of Procedure: 09/12/20 Pre-Operative Diagnosis: Term , active labor Post-Operative Diagnosis: Same Surgery/ Procedure Performed: Spontaneous Vaginal Delivery Type of Anesthesia: Epidural Description of Procedure: Patient began pushing and delivered the head in the RAFAEL presentation. The head was delivered atraumatically and no nuchal cord was. The anterior and posterior shoulders delivered without complication followed by the rest of the and the was placed on the maternal abdomen. Delayed cord clamping was employed for approximately 60 seconds. Cord was clamped and cut and gentle traction was applied to the cord and the placenta delivered spontaneously immediately following it was noted to be intact with three-vessel cord. The perineum and vagina were inspected and a midline second-degree perineal laceration was noted and repaired in the standard fashion using 3-0 Vicryl rapide suture. EBL was 200 cc. Patient and infant tolerated delivery well. Presentation: Vertex, RAFAEL Placental Delivery Description: Spontaneous Placenta Disposition: [facility] Cord Vessel Description: 3 Vessels Cord Entanglement: None Estimated Blood Loss: 200 cc A gender: Male Episiotomy Description: None Laceration: Midline, Perineal Extension/lac, 2nd degree Medications given after delivery: IV Pitocin Complications: None Multi Select Codes - Urinary/Genital Urinary/Genital CPT Codes: 10139 Vaginal Delivery [facility]
--- NOTE | 2020-09-12 12:33 | DCINST_ITS ---
Discharge Diet: No Restrictions Discharge Activity: Return to Normal Activity, May not drive while taking narcotic pain medications., May Shower May resume sexual activity in: 4-6 weeks Additional Activity Instructions:: Nothing in the vagina for 4-6 weeks. You may return to work/school in 6 weeks. Call your doctor if your incision/area has: Continuous Slow Oozing, Sudden Increased Bleeding, Increased Pain/ Swelling, Increased Redness, Foul Smelling Discharge Additional Instructions: If you experience any of the following, contact your healthcare provider. * Bleeding that soaks a pad every hour for 2 hours * Fever 100.4 or higher * Unrelieved incision or abdominal pain * Swelling, redness, discharge or bleeding from your incision or episiotomy site * Your incision begins to separate * Problems urinating (including inability to urinate or burning while urinating). * Visual changes * Severe headache * Flu-like symptoms * Pain or redness in one of both of your breasts * Pain, warmth, tenderness or swelling in your legs, especially the calf area * Frequent nausea and vomiting * Symptoms of depression or anxiety If you experience any of the following, call 911 or go to the nearest Emergency Room. * Chest pain * Problems breathing * Seizure activity * Partial or complete paralysis of a body part, slurred speech, weakness or drooping of the face, or a sudden inability to walk or hold your balance Allergies/Adverse Reactions: Allergies No Known Allergies Allergy (Verified 09/11/20 11:12) Medications to take at Discharge prenat.vits,sana,[id number] 1 tab PO QDAY 05/21/17 famotidine 20 mg tablet 20 mg PO BID #60 tab 07/19/20 When: Call to make an appointment with your doctor in 6 weeks. If you had elevated Blood Pressure or 4th degree laceration you will need to be seen in 2 weeks. Primary Care Physician: Radha Cardenas NP, [employer]INE OPERATOR-[employer] [Primary Care Provider] - Test Results: Test results from this visit will be discussed in further detail at your follow- up appointment, if applicable.
--- NOTE | 2020-09-12 12:33 | PCM.DCVAG ---
Discharge Diet: No Restrictions Discharge Activity: Return to Normal Activity, May not drive while taking narcotic pain medications., May Shower May resume sexual activity in: 4-6 weeks Additional Activity Instructions:: Nothing in the vagina for 4-6 weeks. You may return to work/school in 6 weeks. Call your doctor if your incision/area has: Continuous Slow Oozing, Sudden Increased Bleeding, Increased Pain/ Swelling, Increased Redness, Foul Smelling Discharge Additional Instructions: If you experience any of the following, contact your healthcare provider. Bleeding that soaks a pad every hour for 2 hours Fever 100.4 or higher Unrelieved incision or abdominal pain Swelling, redness, discharge or bleeding from your incision or episiotomy site Your incision begins to separate Problems urinating (including inability to urinate or burning while urinating). Visual changes Severe headache Flu-like symptoms Pain or redness in one of both of your breasts Pain, warmth, tenderness or swelling in your legs, especially the calf area Frequent nausea and vomiting Symptoms of depression or anxiety If you experience any of the following, call 911 or go to the nearest Emergency Room. Chest pain Problems breathing Seizure activity Partial or complete paralysis of a body part, slurred speech, weakness or drooping of the face, or a sudden inability to walk or hold your balance Allergies/Adverse Reactions: Allergies No Known Allergies Allergy (Verified 09/11/20 11:12) Medications to take at Discharge prenat.vits,sana,mfg-yhek-pcehu 1 tab PO QDAY 05/21/17 famotidine 20 mg tablet 20 mg PO BID #60 tab 07/19/20 When: Call to make an appointment with your doctor in 6 weeks. If you had elevated Blood Pressure or 4th degree laceration you will need to be seen in 2 weeks. Primary Care Physician: Radha Cardenas NP, [employer]KER-[employer] [Primary Care Provider] - Test Results: Test results from this visit will be discussed in further detail at your follow-up appointment, if applicable.
[2020-09-12] MEDS: 0.9% Saline Lock 10 ML Syringe IV (13:27)
[2020-09-12] MEDS: Naproxen 250 MG Tablet 500 MG PO (15:09)
[2020-09-12] MEDS: Acetaminophen 500 MG Tablet 1000 MG PO (20:22)
[2020-09-12] MEDS: Famotidine 20 MG Tablet PO (22:05)
[2020-09-13] VITALS: BP 123/74; PULSE 66; RESP 16; TEMP 36.9
[2020-09-13] MEDS: Naproxen 250 MG Tablet 500 MG PO ×2 (00:23→07:45)
[2020-09-13 03:26] VITALS: BP 130/78; PULSE 69; RESP 16; TEMP 36.8
[2020-09-13 07:50] VITALS: BP 111/72; PULSE 70; RESP 14; TEMP 36.6
--- NOTE | 2020-09-13 08:30 | PCM.PN.OB ---
Patient Problems: Active and Suspected Problems (Last Reviewed 09/11/20 @ 11:12 by Belem Szymanski) Active labor (Acute) Lab test negative for COVID-19 virus (Acute) Negative GBS (Acute) 36 weeks gestation of (Acute) Scheduled 09/06 at 2:20pm Abnormal glucose affecting (Acute) NL 3gtt Encounter for prophylactic administration of RhoGAM (Acute) 07/03/20 History of tetanus, diphtheria, and acellular pertussis booster vaccination (Tdap) (Acute) 07/03/20 Anemia affecting (Acute) Add Fe daily UTI in (Acute) tx 03/14; repeat negative Influenza vaccine administered (Acute) 02/15/2020 SC Rh negative status during (Acute) rhogam PRN and given at 28 weeks. (Acute) declined genetic, carrier, and ntd screening. nl anatomy. Supervision of normal (Acute) PRR EASTON 09/21/19 boy Hilario MONTEIRO eleanor Cristian Subjective: Patient doing well without complaints. Tolerating PO. Ambulating and voiding without difficulty. Breast feeding well. Denies chest pain, shortness of breath, calf pain/swelling, fevers, chills, lightheadedness. - Physical Exam Vitals/I&O's: Vital Signs Temp Pulse Resp BP Pulse Ox 98.2 F 69 16 130/78 H 98 09/13/20 03:26 09/13/20 03:26 09/13/20 03:26 09/13/20 03:26 09/12/20 15:58 Oxygen Delivery Method Room Air Weight: 192 lb 10.944 oz Body Mass Index (BMI) 33.0 Intake and Output for Last 24 Hours 09/11/20 09/12/20 09/13/20 23:59 23:59 23:59 Intake Total 2744.83 / 2744.83 Output Total 900 / 900 Balance 1844.83 / 1844.83 General: Alert, Oriented x3, Cooperative, No apparent distress, Well developed, Well nourished HEENT: Atraumatic, PERRLA, EOMI, Normocephalic Neck: Supple, No JVD Lungs: Normal air movement Cardiovascular: Regular rate Abdomen: Soft, Non Tender, Non-Distended, - - fundus firm Extremities: No edema, No Calf Tenderness Neurological: Cranial nerves II-XII grossly intact, Neuro grossly intact Psych/Mental Status: Normal Affect, Appropriate Laboratory Results 09/12/20 13:55: Screen NEGATIVE, Baby's Blood Type O POSITIVE, Baby's BONNIE NEGATIVE Current Medications Acetaminophen (Acetaminophen 500 Mg Tablet) 1,000 mg PO Q8H PRN PRN PRN Reason: Pain Score 1-3 Last Admin: 09/12/20 20:22 Dose: 1,000 mg Documented by: Bisacodyl (Bisacodyl 10 Mg Suppository) 10 mg RC UD PRN PRN Reason: If no BM Dibucaine (Dibucaine 30 Gm Tube) 1 applic TOPICAL TID PRN PRN; Protocol PRN Reason: Discomfort Famotidine (Famotidine 20 Mg Tablet) 20 mg PO BID NGUYEN Last Admin: 09/12/20 22:05 Dose: 20 mg Documented by: Hydrocortisone (Hydrocortisone 2.5% Crm) 1 applic TOPICAL TID PRN PRN; Protocol PRN Reason: Discomfort Methylergonovine Maleate (Methylergonovine 0.2 Mg/Ml Ampul) 0.2 mg IM X1 PRN PRN Reason: Excess bleeding/uterine atony Naproxen (Naproxen 250 Mg Tablet) 500 mg PO Q8H PRN PRN PRN Reason: Pain Score 1-3 Last Admin: 09/13/20 07:45 Dose: 500 mg Documented by: Ondansetron HCl (Ondansetron 4 Mg/2 Ml Vial) 4 mg IV Q4H PRN PRN PRN Reason: Nausea Oxycodone HCl (Oxycodone 5 Mg Tablet) 5 - 10 mg PO Q4H PRN PRN PRN Reason: Pain Score 4-10 Senna/Docusate Sodium (Senna/Docusate Sodium 1 Tablet) 1 - 2 tablet PO DAILY PRN PRN PRN Reason: Constipation Simethicone (Simethicone 80 Mg Tablet) 80 mg PO PCHS PRN PRN Reason: Indigestion/Stomach pain Sodium Chloride (0.9% Saline Lock 10 Ml Syringe) 5 - 15 ml IV UD PRN PRN Reason: SALINE FLUSH Medical Necessity - Tobacco Use Smoking Status: Never smoker Assessment/Plan All Active Problems (Last Reviewed 09/11/20 @ 11:12 by Belem Szymanski) Active labor (Acute) Lab test negative for COVID-19 virus (Acute) Negative GBS (Acute) 36 weeks gestation of (Acute) Abnormal glucose affecting (Acute) Encounter for prophylactic administration of RhoGAM (Acute) History of tetanus, diphtheria, and acellular pertussis booster vaccination (Tdap) (Acute) Anemia affecting (Acute) UTI in (Acute) Influenza vaccine administered (Acute) Rh negative status during (Acute) (Acute) Supervision of normal (Acute) Contraception management (Resolved) Placenta previa (Resolved) Rh negative status during (Resolved) Segmental and somatic dysfunction of cervical region (Resolved) Segmental and somatic dysfunction of lumbar region (Resolved) Segmental and somatic dysfunction of sacral region (Resolved) Segmental and somatic dysfunction of thoracic region (Resolved) Supervision of normal (Resolved) s/p PPD # 1 1. routine post delivery care 2. breast feeding- support given 3. rh negative 4. rubella immune
[2020-09-13] MEDS: Acetaminophen 500 MG Tablet 1000 MG PO (12:18)
[2020-09-13 13:50] VITALS: BP 115/62; PULSE 87; RESP 16; TEMP 36.8
== END 2020-09-13 16:10 | disposition home or self-care (01) | DRG 806 ==
LOC: WPOUT 01:18 → WP 01:18
PROVIDERS: Admitting Provider Obstetrics & Gynecology; PCP Nurse Practitioner Adult Health; Referring Provider Obstetrics & Gynecology; Visit Provider Obstetrics & Gynecology
DX: O99.02 Anemia complicating childbirth (principal); O36.0130 Maternal care for anti-D [Rh] antibodies, third trimester, not applicable or unspecified; Z37.0 Single live birth; O23.43 Unspecified infection of urinary tract in pregnancy, third trimester; O99.814 Abnormal glucose complicating childbirth; D64.9 Anemia, unspecified; O70.1 Second degree perineal laceration during delivery; Z3A.38 38 weeks gestation of pregnancy
CPT/HCPCS: 59025; 59050; 85025; 85461; 86850; 86900; 86901; 90384; 99218; J7120; A4216; G0378; J2790

== ENCOUNTER → 2022-08-03 | Outpatient (CLI) | payer OTHER, SELFPAY ==
[2022-08-03 14:31] LABS: Absolute Lymphocyte Count 1.46 X10^3/uL (0.83-4.51); Absolute Neutrophil Count 9.1 X10^3/uL (2.0-7.7); Basophil# 0.05 X10^3/uL; Basophil% 0.4 % (0-1); Eosinophil# 0.13 X10^3/uL; Eosinophils% 1.1 % (0-5); Hematocrit 38.6 % (37-47); Hemoglobin 12.2 g/dL (12.0-15.0); Lymphocyte # 1.46 X10^3/ul (0.83-4.51); Lymphocyte % 12.6 % (19-41); Mean Corp Hgb Conc 31.6 g/dL (32-36); Mean Corpuscular Hgb 24.8 pg (27.0-32.0); Mean Corpuscular Volume 78.6 fL (81-99); Mean Platelet Vol. 10.3 fl (6.2-12.0); Monocyte# 0.79 X10^3/uL; Monocyte% 6.8 % (0-10); NRBC Flagged by Analyzer 0 % (0-5); Neutrophil # 9.09 X10^3/uL (2.7-7.7); Neutrophil % 78.5 % (47-70); Platelet Count 285 K/mm3 (150-450); RBC Distribution Width CV 14.8 % (11.6-14.6); RBC Distribution Width SD 42.2 fl (35.1-43.9); Red Blood Count 4.91 M/mm3 (4.2-5.4); White Blood Count 11.6 K/mm3 (4.4-11.0)
[2022-08-03 15:27] LABS: NATERA MAILED SPECIMEN
[2022-08-03 15:59] LABS: HIV - WCH Non-Reactive (Nonreactive); Hepatitis B Surface Antigen Non-Reactive (Nonreactive); Hepatitis C Antibody Non-Reactive (Nonreactive); Rubella IgG Reactive (Nonreactive); Syphilis Antibodies Non-reactive
[2022-08-05 22:06] LABS: Chlamydia By Nucleic Acid AMP Negative (Negative)
[2022-08-07 22:05] LABS: Gonococcus By Nucleic Acid AMP Negative (Negative)
[2022-08-11 21:22] LABS: HPV Reflexed? NOT INDICATED
== END | disposition home or self-care (01) ==
PROVIDERS: PCP Nurse Practitioner Adult Health; Referring Provider Obstetrics & Gynecology; Visit Provider Obstetrics & Gynecology
DX: Z34.81 Encounter for supervision of other normal pregnancy, first trimester (principal)
CPT/HCPCS: 36415; 85025; 86703; 86762; 86780; 86803; 86850; 86900; 86901; 87086; 87088; 87340; 87491; 87591; 88175; G0145

== ENCOUNTER → 2022-08-14 | Outpatient (CLI) | payer OTHER, SELFPAY ==
[2022-08-14 09:05] LABS: Glucose Challenge Gest 1H 50g 132 mg/dL (70-140)
== END | disposition home or self-care (01) ==
PROVIDERS: PCP Nurse Practitioner Adult Health; Referring Provider Obstetrics & Gynecology; Visit Provider Obstetrics & Gynecology
DX: O99.210 Obesity complicating pregnancy, unspecified trimester (principal)
CPT/HCPCS: 36415; 82950

== ENCOUNTER 2022-11-10 08:45 | Outpatient (CLI) | payer OTHER, SELFPAY ==
--- NOTE | 2022-11-10 09:07 | US_ITS ---
STUDY: SECOND AND THIRD TRIMESTER OBSTETRICAL ULTRASOUND - LIMITED REASON FOR EXAM: Female, 26 years old vaginal bleeding LMP: May 25, 2022. PRIOR ULTRASOUND: None. TECHNIQUE: Transabdominal and Transvaginal TECHNICAL QUALITY: Adequate. FINDINGS: There is a single intrauterine fetus. The fetus is in a cephalic presentation. There is demonstrated cardiac activity with a heart rate of 138 bpm. There is a normal amniotic fluid volume. The largest amniotic fluid pocket measures 4.5 cm x 8.6 cm. The amniotic fluid index (ANGELA) is within normal limits. The placenta is anterior in location and is not low lying. There are Grade 0 placental changes. The cervix measures 3.4 cm in length. IMPRESSION: Unremarkable examination. Electronically Signed: Jewel Carvajal MD at 12:18 EDT , STUDY: FIRST TRIMESTER OBSTETRICAL ULTRASOUND REASON FOR EXAM: Female, 26 years old vaginal bleeding . LMP: May 25, 2022. TECHNIQUE: Transvaginal TECHNICAL QUALITY: Adequate. PRIOR ULTRASOUND: None. FINDINGS: Cervical length is 3.4 cm. The placenta is in the anterior wall of the uterus without evidence of placenta previa US/OB Limited (No Biometrics) IMPRESSION: Anterior placenta. Electronically Signed: Jewel Carvajal MD at 12:20 EDT ,
[2022-11-10 09:20] VITALS: BP 121/72; PULSE 107; O2SAT 99
[2022-11-10 09:25] VITALS: PULSE 80; O2SAT 98
[2022-11-10 09:30] VITALS: TEMP 37.3; O2SAT 97
[2022-11-10 09:46] LABS: Absolute Neutrophil Count 6.8 X10^3/uL (2.0-7.7); Basophil# 0.04 X10^3/uL; Basophil% 0.4 % (0-1); Eosinophil# 0.09 X10^3/uL; Hematocrit 30.3 % (37-47); Hemoglobin 9.3 g/dL (12.0-15.0); Lymphocyte % 17.3 % (19-41); Mean Corp Hgb Conc 30.7 g/dL (32-36); Mean Corpuscular Hgb 23.5 pg (27.0-32.0); Mean Corpuscular Volume 76.7 fL (81-99); Mean Platelet Vol. 10.5 fl (6.2-12.0); Monocyte# 0.62 X10^3/uL; Monocyte% 6.7 % (0-10); NRBC Flagged by Analyzer 0 % (0-5); Neutrophil # 6.75 X10^3/uL (2.7-7.7); Neutrophil % 73.2 % (47-70); Platelet Count 304 K/mm3 (150-450); RBC Distribution Width CV 15.1 % (11.6-14.6); RBC Distribution Width SD 41.6 fl (35.1-43.9); Red Blood Count 3.95 M/mm3 (4.2-5.4); White Blood Count 9.2 K/mm3 (4.4-11.0)
[2022-11-10 10:49] LABS: Fibrinogen 560 mg/dl (203-444)
[2022-11-10 11:38] VITALS: BP 118/69; PULSE 80
[2022-11-10 16:09] VITALS: BP 137/81; PULSE 102
--- NOTE | 2022-11-10 21:04 | OB.TRI.PN_ITS ---
Progress Notes Date of Service: 11/10/22 Progress Note: Patient presents for triage evaluation secondary to vaginal bleeding with low lying placenta. FHT: 135 appropriate for gestational age [place]: no Contractions Assessment and plan: ultrasound no evidence of abruption or previa. Rhogam given-reassuring maternal and status patient discharged to home to follow- up in office. Dr Tom mcallister and hayde with D/C home with normal US findings. See problem list details for additional plan information. Laboratory Studies: Laboratory Tests 11/10/22 11/10/22 11/10/22 Range/Units 09:30 09:30 09:30 WBC 9.2 (4.4-11.0) K/mm3 RBC 3.95 L (4.2-5.4) M/mm3 Hgb 9.3 L (12.0-15.0) g/dL Hct 30.3 L (37-47) % MCV 76.7 L (81-99) fL MCH 23.5 L (27.0-32.0) pg MCHC 30.7 L (32-36) g/dL RDW Std Deviation 41.6 (35.1-43.9) fl RDW Coeff of Mary 15.1 H (11.6-14.6) % Plt Count 304 (150-450) K/mm3 MPV 10.5 (6.2-12.0) fl Immature Gran % (Auto) 1.400 H (0.0-0.9) % Neut % (Auto) 73.2 H (47-70) % Lymph % (Auto) 17.3 L (19-41) % Bertie % (Auto) 6.7 (0-10) % Eos % (Auto) 1.0 (0-5) % Baso % (Auto) 0.4 (0-1) % Absolute Neuts (auto) 6.8 (2.0-7.7) X10^3/uL Absolute Lymphs (auto) 1.60 (0.83-4.51) X10^3/uL Nucleated RBC % 0 (0-5) % Fibrinogen 560 H (203-444) mg/dl Blood Type A NEGATIVE Antibody Screen NEGATIVE Charges/Coding Multi Select Codes Urinary/Genital Urinary/Genital CPT Codes: 79907-42 non-stress test Interp Assessment & Plan (1) Low lying placenta, antepartum: COMMENT: 1.5cm from os. follow up at 28 weeks (2) Obesity affecting : COMMENT: passed 1 hour, encouraged healthy weight gain (3) Rh negative status during : COMMENT: rhogam at 28 weeks and PRN (4) : QUALIFIERS: Weeks of gestation: 22 weeks Qualified Code(s): Z3A. 22 - 22 weeks gestation of COMMENT: NIPT low risk, carrier screening discussed (5) Supervision of normal : COMMENT: [id number] EASTON 03/01/23 Hilario Antunez. Spouse-Cristian (6) Vaginal bleeding during , antepartum: COMMENT: 11/10- to WP. Rhogam and US
[2022-11-11 14:43] LABS: Kleihauer-Betke POSITIVE
== END 2022-11-10 15:12 | disposition home or self-care (01) ==
LOC: WPOUT 08:51 → WP 08:51
PROVIDERS: PCP Nurse Practitioner Adult Health; Referring Provider Advanced Practice Midwife; Visit Provider Advanced Practice Midwife
DX: O99.214 Obesity complicating childbirth (principal); O44.52 Low lying placenta with hemorrhage, second trimester; Z3A.22 22 weeks gestation of pregnancy
CPT/HCPCS: 36415; 59050; 76815; 76817; 85025; 85384; 85460; 86850; 86900; 86901; 96372; 99221; G0378; J2790

== ENCOUNTER → 2022-12-11 | Outpatient (CLI) | payer OTHER, SELFPAY ==
[2022-12-13 12:52] LABS: Kleihauer-Betke Negative
== END | disposition home or self-care (01) ==
LOC: PAVLAB 11:34
PROVIDERS: Referring Provider Obstetrics & Gynecology; Visit Provider Obstetrics & Gynecology
DX: O46.90 Antepartum hemorrhage, unspecified, unspecified trimester (principal); Z3A.00 Weeks of gestation of pregnancy not specified
CPT/HCPCS: 36415; 85460; 86850; 86870; 86900; 86901

== ENCOUNTER → 2022-12-17 | Outpatient (CLI) | payer OTHER, SELFPAY ==
[2022-12-17 11:01] LABS: Absolute Lymphocyte Count 1.56 X10^3/uL (0.83-4.51); Absolute Neutrophil Count 7.2 X10^3/uL (2.0-7.7); Basophil# 0.04 X10^3/uL; Basophil% 0.4 % (0-1); Hematocrit 30.9 % (37-47); Hemoglobin 9.1 g/dL (12.0-15.0); Lymphocyte # 1.56 X10^3/ul (0.83-4.51); Lymphocyte % 16.2 % (19-41); Mean Corp Hgb Conc 29.4 g/dL (32-36); Mean Corpuscular Hgb 22.8 pg (27.0-32.0); Mean Corpuscular Volume 77.3 fL (81-99); Mean Platelet Vol. 9.8 fl (6.2-12.0); Monocyte# 0.63 X10^3/uL; Monocyte% 6.5 % (0-10); NRBC Flagged by Analyzer 0 % (0-5); Neutrophil # 7.16 X10^3/uL (2.7-7.7); Neutrophil % 74.5 % (47-70); Platelet Count 266 K/mm3 (150-450); RBC Distribution Width CV 15.7 % (11.6-14.6); RBC Distribution Width SD 43.7 fl (35.1-43.9); White Blood Count 9.6 K/mm3 (4.4-11.0)
[2022-12-17 11:22] LABS: Glucose GTT-Gestation. Fasting 88 mg/dL (<105)
[2022-12-17 11:58] LABS: HIV - WCH Non-Reactive (Nonreactive); Syphilis Antibodies Non-reactive
[2022-12-17 12:21] LABS: Glucose GTT-Gestational 1 Hr 150 mg/dL (<190)
[2022-12-17 13:36] LABS: Glucose GTT-Gestational 2 Hr 127 mg/dL (<165)
[2022-12-17 14:06] LABS: Glucose GTT-Gestational 3 Hr 127 L (<145)
== END | disposition home or self-care (01) ==
PROVIDERS: Registered Nurse; Referring Provider Obstetrics & Gynecology; Visit Provider Obstetrics & Gynecology
DX: Z34.90 Encounter for supervision of normal pregnancy, unspecified, unspecified trimester (principal); Z3A.00 Weeks of gestation of pregnancy not specified
CPT/HCPCS: 36415; 82951; 82952; 85025; 86703; 86780

== ENCOUNTER → 2022-12-21 | Outpatient (CLI) | payer OTHER, SELFPAY ==
--- NOTE | 2022-12-21 08:46 | US_ITS ---
STUDY: SECOND AND THIRD TRIMESTER OBSTETRICAL ULTRASOUND - LIMITED REASON FOR EXAM: Female, 27 years old . Polyhydramnios. LMP: May 25, 2022. PRIOR ULTRASOUND: Comparison is made with prior study dated November 10, 2022. TECHNIQUE: Transabdominal TECHNICAL QUALITY: Adequate. FINDINGS: There is a single intrauterine fetus. The fetus is in a cephalic presentation. There is demonstrated cardiac activity with a heart rate of 137 bpm. There is a normal amniotic fluid volume. The largest amniotic fluid pocket measures 5.2 cm x 7.2 cm. The amniotic fluid index (ANGELA) is 17.71 cm. The placenta is anterior in location and is not low lying. There are Grade 1 placental changes. The cervix measures 3.5 cm in length. BIOMETRY: Age by LMP: 30 weeks, 0 days. EASTON by LMP: March 01, 2023. US/OB Limited (No Biometrics) IMPRESSION: Normal amniotic fluid index. Electronically Signed: Jewel Carvajal MD at 9:02 EDT ,
== END | disposition home or self-care (01) ==
PROVIDERS: Referring Provider Obstetrics & Gynecology; Visit Provider Obstetrics & Gynecology
DX: O40.3XX0 Polyhydramnios, third trimester, not applicable or unspecified (principal); Z3A.30 30 weeks gestation of pregnancy
CPT/HCPCS: 76815

== ENCOUNTER 2022-12-22 17:12 | Outpatient (CLI) | payer OTHER, SELFPAY ==
--- NOTE | 2022-12-22 17:16 | US_ITS ---
INDICATION: POLYHYDRAMNIOS- WELL BEING EXAMINATION: Ultrasound US Biophysical Profile W/O Nonst TECHNIQUE: Transabdominal pelvic ultrasound was performed. COMPARISON: 12/21/2022 LMP: 05/25/2022 Beta-hCG: Unknown. Provided EGA: 30 weeks 1 day FINDINGS: INTRAUTERINE GESTATION(s): Single. HEART MOTION is 148 bpm. AMNIOTIC FLUID INDEX (ANGELA): 16.8 cm BIOPHYSICAL PROFILE (BPP): 6/8 -- Breathin/2. -- Movement: 2/2. -- Tone: 2/2. --ANGELA: 2/2. PRESENTATION: Cephalic PLACENTA: Anterior. There is no placenta previa or abruption. US/Biophysical Prof W/O Non Stres IMPRESSION: Single live intrauterine . Biophysical profile score 6/8 due to breathing movements. Electronically Signed: Klever Escudero MD at 19:01 EDT ,
== END 2022-12-22 23:59 | disposition home or self-care (01) ==
LOC: US 17:13
PROVIDERS: Referring Provider Obstetrics & Gynecology; Visit Provider Obstetrics & Gynecology
DX: O40.3XX0 Polyhydramnios, third trimester, not applicable or unspecified (principal); Z3A.30 30 weeks gestation of pregnancy
CPT/HCPCS: 59025; 59050; 76819; 99221; G0378

== ENCOUNTER 2022-12-22 18:00 | Outpatient (CLI) | payer OTHER, SELFPAY ==
[2022-12-22 18:17] VITALS: BMI 32.1
[2022-12-22 18:25] VITALS: BP 119/70; PULSE 81; TEMP 36.8
--- NOTE | 2022-12-22 20:52 | OB.TRI.PN ---
Progress Notes Date of Service: 12/22/22 Progress Note: Patient presents for triage evaluation secondary to abnormal testing 11/19 bpp FHT: 130 Moderate variability reactive no decelerations category I tracing [place]: no regular Contractions Assessment and plan: reassuring testing polyhydramnios Reactive NST, reassuring maternal and status patient discharged to home to follow-up as scehduled. See problem list details for additional plan information. Charges/Coding Procedures Urinary/Genital 52xxx-59xxx: 70218-66 non-stress test Interp
== END 2022-12-22 19:33 | disposition home or self-care (01) ==
LOC: WPOUT 18:06 → WP 18:07
PROVIDERS: Referring Provider Obstetrics & Gynecology; Visit Provider Obstetrics & Gynecology
DX: O40.9XX0 Polyhydramnios, unspecified trimester, not applicable or unspecified (principal)
CPT/HCPCS: 59025; 59050; 99221; G0378

== ENCOUNTER 2022-12-28 08:14 | Outpatient (CLI) | payer OTHER, SELFPAY ==
--- NOTE | 2022-12-28 08:30 | US_ITS ---
INDICATION: polyhydramnios -- EXAMINATION: Ultrasound US Biophysical Profile W/O Nonst TECHNIQUE: Transabdominal pelvic ultrasound was performed. COMPARISON: Prior study dated: December 22, 2022 FINDINGS: INTRAUTERINE GESTATION(s): Single. HEART MOTION is 157 bpm. AMNIOTIC FLUID INDEX (ANGELA): 18.97 BIOPHYSICAL PROFILE (BPP): 6/8 -- Breathin/2. -- Movement: 2/2. -- Tone: 2/2. --ANGELA: 2/2. PRESENTATION: Cephalic PLACENTA: Anterior. US/Biophysical Prof W/O Non Stres IMPRESSION: Single live intrauterine . Biophysical profile score of 6/8. Electronically Signed: Carmelita Navas MD at 9:59 EDT ,
--- OUTSIDE RECORDS SUMMARY | 2022-12-28 08:45 | XMS RPT_ITS | CCD ---
Author Name Unknown Address [address] [place] [address] Organization [facility] Care Team Providers Care Fur Trimmer Name Role Phone Theresa MECHANICAL LABORATORY TECHNICIAN-MERCEDES Radha Primary Care Provider [facility] Primary Care Provider BILL Becerra Attending Unavailable REFERRED, SELF Referring Unavailable [facility] Primary Care Unavailable GIULIANA BOYD Attending Unavailable REFERRED, SELF Referring [facility] Unavailable ТАТЬЯНА THAYER Attending Unavailable ТАТЬЯНА THAYER Referring Unavailable [facility] Primary Care Unavailable ТАТЬЯНА THAYER Attending Unavailable MOISE COLE Referring Unavailab le [facility] Primary Care Unavailable ТАТЬЯНА THAYER Attending Unavailable FRANCISCO JOE Referring Unavailable [facility] Unavailable ТАТЬЯНА THAYER Attending Unavailable FRANCISCO JOE Referring Unavailable [facility] Primary [facility] Unavailable TARYN MCLAUGHLIN Attending Unavailable MOISE COLE Referring Unavailab le [facility] Primary [facility] Unavailable ТАТЬЯНА THAYER Referring Unavailable ТАТЬЯНА THAYER Attending Unavailable [facility] Primary Care Unavailable AN BEDOYA Attending Unavailable AN BEDOYA Admitting Unavailable [facility] Primary [facility] Unavailable Medications Current Medications Medication Drug Class(es) Dates Sig (Normalized) Sig (Original) famotidine 20 mg oral tablet (4 sources) Histamine-2 Receptor Antagonist take 1 tablet by mouth once daily famotidine (Pepcid) 20 MG tablet Take 20 mg by mouth daily. 0 Active Completed/Discontinued Medications Medication Drug Class(es) Dates Sig (Normalized) Sig (Original) betamethasone 3 mg/ml / betamethasone acetate 3 mg/ml injectable suspension (3 sources) Corticosteroid Start: 12-02-2022 End: 12-04-2022 betamethasone acetate-betamethason e sodium phosphate (Celestone) injection 12 mg Problems Problem Classification Problem Date Documented Date Episodic/Chronic Hemorrhage during ; abruptio placenta; placenta previa (1 source) Second trimester bleeding; Translations: [Antepartum hemorrhage, unspecified, second trimester] 12-02-2022 Episodic Other complications of (1 source) Maternal obesity complicating , childbirth and the puerperium, antepartum; Translations: [Obesity complicating , third trimester] 12-02-2022 Chronic Other complications of (2 sources) RhD negative; Translations: [Other specified related conditions, unspecified trimester] 12-02-2022 Episodic Polyhydramnios and other problems of amniotic cavity (4 sources) Polyhydramnios with problem; Translations: [Polyhydramnios, third trimester, not applicable or unspecified] Onset: 12-02-2022 12-02-2022 Episodic Unclassified (3 sources) OB Reminders Onset: 12-03-2022 12-03-2022 Unclassified (3 sources) Patient Stated Goal Onset: 12-03-2022 12-03-2022 Unclassified (2 sources) Contractions; Translations: [Contractions] Onset: 12-03-2022 Results Test Name Value Interpretation Reference Range Facil ity Vital Signs Date Time Vital Sign Value Performing Clinician John melara 12-03-2022 13:15-0400 Heart rate 105 /min An Bedoya DO Work Phone: [facility] [employer] 12-03-2022 13:08-0400 Body temperature 98.01 [degF] An Bedoya DO Work Phone: [facility] [employer] 12-03-2022 13:08-0400 Diastolic blood pressure 70 mm[Hg] An Bedoya DO Work Phone: [facility] [employer] 12-03-2022 13:08-0400 Systolic blood pressure 111 mm[Hg] An Bedoya DO Work Phone: [facility] [employer] Encounters Encounter Date Encounter Type Care Provider Facility Start: 12-07-2022 End: 12-08-2022 ambulatory ТАТЬЯНА FLACA [facility] Start: 12-07-2022 End: 12-07-2022 Subsequent hospital visit by physician Татьяна Thayer MD Work Phone: [facility] Procedures Date Procedure Procedure Detail Performing Clinician Start: 12-03-2022 End: 12-03-2022 Iadna chlamydia trachomatis amplified probe tq Rosemarie Sultana DO Work Phone: Start: 12-02-2022 Blood typing serolog ic abo Татьяна Thayer MD Work Phone: Start: 12-02-2022 Glucose post glucose dose Татьяна Thayer MD Work Phone: Plan of Treatment Date Care Activity Detail Author Start: 2044 Zoster Vaccines (1 of 2) Zoste r Vaccines (1 of 2) [facility] Start: 07-03-2030 DTaP/Tdap/Td Vaccine s (4 - Td or Tdap) DTaP/Tdap/Td Vaccines (4 - Td or Tdap) [facility] Start: 02-12-2023 FLU (Season Ended) FLU (Season Ended ) [facility] Start: 02-12-2023 Influenza vaccination Influenz a Vaccine (Season Ended) [facility] Start: 12-07-2022 End: 12-07-2022 Patient encounter procedure 12/07/2022 11:00 AM EDT Appointment [facility] [address] [place] [address] [facility] Start: 12-03-2022 End: 12-03-2022 Patient encounter procedure 12/03/2022 11:00 AM EDT Office Visit [facility] [address] [place] [address] Bill Singh MD [address] [place] [address] [facility] Start: 12-03-2022 End: 12-03-2022 Professional / ancillary services management 12/03/2022 10:30 AM EDT Ancillary Procedure Visit [facility] [address] [place] [address] [facility] Start: 04-26-2021 COVID-19 (3 - Booste r for Moderna series) COVID-19 (3 - Booster for Moderna series) [facility] Start: 04-26-2021 COVID-19 Vaccine (3 - Booster for Moderna series) COVID-19 Vaccine (3 - Booster for Moderna series) [facility] Start: 11-12-2015 Microscopic observat ion [Identifier] in Cervix by Cyto stain Pap Smear [facility] Start: 11-12-2015 Screening for malign ant neoplasm of cervix Pap Smear [facility] Start: 2012 Hepatitis C screening Hepatitis C Sc reening [facility] Start: 2010 MenB (1 of 2 - MenB 2-Dose Series Bexsero) MenB (1 of 2 - MenB 2-Dose Series Bexsero) [facility] Start: 2006 Depression Screening Depression Scre ening [facility] Start: 2001 Tetanus Diphtheria a nd Pertussis Vaccines (1 - Tdap) Tetanus Diphtheria and Pertussis Vaccines (1 - Tdap) [facility] Start: 11-12-1995 MMR (1 of 1 - Standa rd series) MMR (1 of 1 - Standard series) [facility] Start: 11-12-1995 MMR Vaccines (1 of 1 - Standard series) MMR Vaccines (1 of 1 - Standard series) [facility] Start: 11-12-1995 Varicella (1 of 2 - 2-dose childhood series) Varicella (1 of 2 - 2-dose childhood series) [facility] Start: 11-12-1995 Varicella vaccination Varicell a Vaccines (1 of 2 - 2-dose childhood series) [facility] Start: 1994 Hepatitis B (1 of 3 - 3-dose series) Hepatitis B (1 of 3 - 3-dose series) [facility] Start: 1994 Hepatitis B Vaccines (1 of 3 - 3-dose series) Hepatitis B Vaccines (1 of 3 - 3-dose series) [facility] Start: 1994 HIV screening HIV Screening [facility] Start: 1994 Lipid panel Lipid Panel [facility] End: 12-03-2022 Fungus identified in Unspecified specimen by Culture [facility] Immunizations Immunization Date Immunization Notes Care Provider Quan padilla 03-14-2016 influenza virus vacc ine, unspecified formulation An Bedoya DO Work Phone: [facility] Payers Date Payer Category Payer Private Health Insurance [id number] 2022 Private Health Insurance [id number] 1994 Unknown [id number] [id number]. [id number] 1994 Unknown [id number] 2.16. [id number] 1994 Unknown [id number] 2.16. [id number] 1994 Unknown [id number] 2.16. [id number] 1994 Unknown [id number] 2.16. [id number] 1994 Unknown [id number] 2.16. [id number] 1994 Unknown [id number] 2.16. [id number] Social History Date Type Detail Facility Start: 12-02-2022 End: 12-03-2022 Tobacco smoking status NHIS Never smoked tobacco [facility] Start: 12-02-2022 End: 12-03-2022 Tobacco use and exposure Smokeless tobacco non-user [facility] Start: 12-02-2022 Alcohol intake Ex-drinker (finding) [facility] Start: 12-02-2022 End: 12-03-2022 History of Social function [facility] Start: 12-02-2022 End: 12-03-2022 Tobacco use panel [facility] Start: 06-08-2022 [facility] Start: 1995 Sex Assigned At Not on file [facility] Start: 12-03-2022 Alcohol intake Lifetime non-d nate (finding) [facility] Start: 11-23-2022 End: 12-07-2022 Exposure to SARS-CoV-2 (event) Not sure [facility] Goals Date Patient Goal Desired Activity /State Personal health goal Hospital Discharge instructions 12-03-2022 Discharge Instructions Note Date & Type Note Facility 12-03-2022 Hospital Discharg e instructions Rosemarie Sultana DO - 12/03/2022 2:49 PM EDT Follow up appointment with your doctor/automatic pinsetter adjuster - Keep next scheduled appointment Activity - Normal Activity Call your doctor/automatic pinsetter adjuster if you have: - leaking fluid - vaginal bleeding - regular contractions: More than 6 contractions in one hour - decreased movement - worsening abdominal (belly) pain - headache, blurry vision, increased swelling, upper abdominal pain If you are going home with contractions that are uncomfortable/painful- we recommend these coping strategies: rhythmic breathing, hydrotherapy, imagery or visualization, gentle massage, walking and changing your position. Treatment Verification: Jose Miguel Tapia was assessed on Labor and Delivery for a related visit on 12/03/22 . Rosemarie Sultana DO [facility] documented in this encounter [facility] History of Present illness Narrative 12-03-2022 Rosemarie Sultana DO - 12/03/2022 2:19 PM EDT Note Date & Type Note Facility 12-03-2022 History of Presen t illness Narrative Department of Obstetrics and Gynecology Labor and Delivery Triage Note CHIEF COMPLAINT: r/o PTL HISTORY OF PRESENT ILLNESS: The patient is a 27 y.o. 27w3d. OB History 3 Para 2 Term 2 AB Living 2 SAB IAB Ectopic Multiple Live Births Patient presents with a chief complaint as above. Presents from [facility] office where she underwent TVUS today to assess placenta as she had placenta previa on her anatomy scan. Placenta previa is resolved today however she was found to have an incidentally short cervix of 1.6cm with funneling. She reported mild contractions so was sent in for evaluation of tPTL. Denies DFM/VB/LOF. Estimated Due Date: Estimated Date of Delivery: None noted. PAST MEDICAL HISTORY: No past medical history on file. PAST SURGICAL HISTORY: Past Surgical History: Procedure Laterality Date TONSILLECTOMY WISDOM TOOTH EXTRACTION SOCIAL HISTORY: reports that she has never smoked. She has never used smokeless tobacco. She reports that she does not drink alcohol and does not use drugs. MEDICATIONS: Prior to Admission medications Medication Sig Start Date End Date Taking? Authorizing Provider famotidine (Pepcid) 20 MG tablet Take 20 mg by mouth daily. Historical Provider, Vit-Fe Fumarate-FA ( 1+1 PO) Take by mouth. Historical Provider, CARE: Complicated by: Isoimmunization Abnormal 1 hour GTT REVIEW OF SYSTEMS: Pertinent items are noted in HPI. APPEARANCE: Pain: No PHYSICAL EXAM: Vital Signs: VS wnl-reviewed/Respirations normal effort Vitals: 12/03/22 1308 12/03/22 1310 12/03/22 1315 BP: 111/70 Pulse: 94 101 105 Temp: 36.7 C (98 F) TempSrc: Oral Abdomen: soft, NT, ND, no rebound/guarding Uterus: gravid/non-tender LE Edema: trace Speculum Exam: no pooling of fluid seen, Nitrizine test is negative, Ferning test is negative, vaginal discharge physiologic discharge present heart rate: Category I Cervix: closed Contraction frequency: none Membranes: Intact GENERAL LABS: No results found for this or any previous visit (from the past 24 hour(s)). TRIAGE COURSE: Pt presents for r/o PTL in the setting of incidentally found short cervix on TVUS today of 1.6cm. GCCT, trich, yeast culture and gram stain collected. Cervix closed on exam and patient is very comfortable appearing. Baby was breech today on ultrasound. FHT cat I. Low concern for PTL at this time. Labor precautions reviewed with patient. Stable for discharge home. ESSION: Threatened Pre-Term Labor Pain assessment and plan: None DISCUSSED WITH PNC PROVIDER: Dr. Thayer DISPOSITION: Discharge to Home Associated attestation - Татьяна Thayer MD - 12/03/2022 4:29 PM EDT Maternal Medicine attending attestation: I reviewed and agree with the care provided by the resident during or immediately following the visit including the patient's medical history, the resident's findings in the physical exam, patient's diagnosis and treatment plan. She is not in labor today, I independently saw this patient and precautions addressed. Follow up appointment on 12/07 at 11am made for follow up MCA/BPP and review her BGT. Parvo and KB repeat is pending. Based upon this testing may be able to return to primary OB for further care documented in this encounter [facility] Evaluation note Note Date & Type Note Facility documented in this encounter [facility] Evaluation note Note Date & Type Note Facility documented in this encounter [facility] Health Summary Purpose Family History No Family History Records FoundNo Family History Records Found Advance Directives No Advanced Directives Records FoundNo Advanced Directives Records Found Additional Source Comments Care Teams (unrecognized sec tion and content) Fur Trimmer Relationship Specialty Start Date End Date [facility] [address] [place] [address] PCP - General 12/03/22 Fur Trimmer Relationship Specialty Start Date End Date [facility] [address] [place] [address] PCP - General 12/03/22 Reason for Visit (unrecogniz ed section and content) Scheduled Active and Recently Administ ered Medications (unrecognized section and content) INFORMATION SOURCE (unrecogn ized section and content) DATE CREATED AUTHOR AUTHOR'S ORGANIZ ATION 12/09/2022 [facility] FOR RECORDS PERTAINING TO PATIENTS WHO ARE OR HAVE BEEN ENROLLED IN A CHEMICAL DEPENDENCY/SUBSTANCEABUSE PROGRAM, SOME INFORMATION MAY BE OMITTED. This clinical summary was aggregated from multiple sources. Caution should be exercised in using it in the provision of clinical care. This summary normalizes information from multiple sources, and as a consequence, information in this document may materially change the coding, format and clinical context of patient data. In addition, data may be omitted in some cases. CLINICAL DECISIONS SHOULD BE BASED ON THE PRIMARY CLINICAL RECORDS. [facility]. provides no warranty or guarantee of the accuracy or completeness of information in this document.
== END 2022-12-28 23:59 | disposition home or self-care (01) ==
LOC: US 08:16
PROVIDERS: Referring Provider Obstetrics & Gynecology; Visit Provider Obstetrics & Gynecology
DX: O40.3XX0 Polyhydramnios, third trimester, not applicable or unspecified (principal); O36.0930 Maternal care for other rhesus isoimmunization, third trimester, not applicable or unspecified; O99.213 Obesity complicating pregnancy, third trimester; O46.93 Antepartum hemorrhage, unspecified, third trimester; E66.9 Obesity, unspecified; O99.013 Anemia complicating pregnancy, third trimester; Z3A.30 30 weeks gestation of pregnancy
CPT/HCPCS: 59025; 59050; 76819

== ENCOUNTER 2022-12-28 09:34 | Outpatient (CLI) | payer OTHER, SELFPAY ==
[2022-12-28 10:58] VITALS: BP 119/70; PULSE 74; TEMP 36.7
--- NOTE | 2022-12-28 17:44 | OB.TRI.HP_ITS ---
HPI - General HPI Narrative SHIRLENE CALDERON, is a 27 F who presents at 31.2 with 6/8 BPP for polyhydramnios for NST in WP. denies lof/vb/ctx. good fm. Maternal Data Information EAST[place] Calculator Estimated Delivery Date Method Current WG Current Estimate 03/01/23 LMP (Certain) 31w 0d PFSH PFSH Medical History COVID-19 Frequent headaches Migraine Home Medications prenat.vits,sana,gjp-nvir-heevm ( Vitamin tablet) 1 tab PO QDAY 05/21/17 [History Last Taken 12/22/22 13:00 1 TAB] famotidine 20 mg tablet (Pepcid) 20 mg PO DAILY #30 tabs 08/07/22 [Rx Last Taken 12/22/22 13:00 20 mg] metoclopramide HCl 10 mg tablet (Reglan) 10 mg PO Q6H PRN nausea and vomiting #90 tabs 09/04/22 [Rx Last Taken Unknown] progesterone micronized 100 mg vaginal insert vaginal Short cervix, [place] Basilio 12/22/22 [History Last Taken 12/21/22 22:00 100 mg] Allergy/AdvReac Type Severity Reaction Status Date / Time No Known Allergies Allergy Verified 12/22/22 18:14 Family History Grandmother Diabetes Breast cancer Aunt Breast cancer Mother Diabetes Gestational Grandfather Colon cancer Father Myocardial infarction Surgical History H/O adenoidectomy History of tonsillectomy History of wisdom tooth extraction, class II edentulism Social History adopted: No household members: spouse and children housing: house current occupational status: employed 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 current occupational exposures/hazards: No pets and animals: Yes pets and animals: dog(s) history of recent travel: No sexually active: Yes Smoking Status: Never smoker second hand exposure: No alcohol intake: current details: socially substance use type: does not use well-balanced diet: about half the time caffeine: Yes Type: coffee Number of servings: 1 eating out: 1-3 times/week what type of physical activity do you participate in: walking and weight training frequency: 1-2 times per week seatbelt use: always do you feel safe at home: Yes additional social history: Cristian- Spherion staffing History 3 Elective abortions Hx Para 2 Spontaneous abortions Hx # Term Pregnancies Ectopic pregnancies Hx # Pregnancies Multiple births # of living children 2 Past Pregnancies Del. Date Name GA/Weeks Outcome Route Bth Weight Infant Gen Labor Lgth Anesthesia Del Locatn Provider FOB Unknown 2017 Nishant 38 live - full term 7lbs Male [address] [facility] SM Cristian 09/12/20 Hilario 38 live - full term 8lbs 14oz Male e pidural [facility] GP Delivery Date: Last Updated by: Jannie Lind No complications to note Delivery Date: 09/12/20 Last Updated by: Mya Gan Midline, Perineal Extension/lac, 2nd degree Visit Details Expected Delivery Route/Plan Lsvd abor Preferences- CB/BF classes: [] labor support person: [] labor intervention preferences: [] pain management options preferred: [] cut cord/dad catch: [] : yes PP control planned: [] discussed possible routes of delivery and associated risks: [] special requests: [] Plans Covid status: discussed Flu vaccine: discussed Tdap vaccine:given Rhogam: obtained 12/11 LARC form signed: completed. Problem list reviewed and updated with the most current plan of care details and appropriate orders placed. Relevant counseling for the gestational age provided. Continue routine care and follow up unless otherwise noted in visit notes/problem list details OB Flowsheet Initial Weight: Not Recorded Date -?-?-?-?-?-?-?-?-?-?-?-?- EGA Weight BP Urine Prot -?-?-?-?-?-?-?-?-?-?-?-?- Glucose FHR FuHt Pres Dilation -?-?-?-?-?-?-?-?-?-?-?-?- Effaced St Visit Note 08/03/22 -?-?-?-?-?-?-?-?-?-?-?-?- 10w 0d 181 lb 128/82 -?-?-?-?-?-?-?-?-?-?-?-?- 170 -?-?-?-?-?-?-?-?-?-?-?-?- SM- CRL 2.75cm c ons with LMP 09/04/22 -?-?-?-?-?-?-?-?-?-?-?-?- 14w 4d 176 lb 130/82 Negative -?-?-?-?-?-?-?-?-?-?-?-?- Negative 150 -?-?-?-?-?-?-?-?-?-?-?-?- JV- low risk NIP T GIRL! has 2 boys at home JV- low risk NIPT GIRL! has 2 boys at home . taking pepcid without much relief. will try reglan. 09/29/22 -?-?-?-?-?-?-?-?-?-?-?-?- 18w 1d 172 lb 8 oz 116/72 Nega tive -?-?-?-?-?-?-?-?-?-?-?-?- Negative 159 -?-?-?-?-?-?-?-?-?-?-?-?- MH-No VB. Susan robles In [place] last week:UTI and tx w/Bactrim. Sx resolved. 10/28/22 -?-?-?-?-?-?-?-?-?-?-?-?- 22w 2d 177 lb 116/72 Trace -?-?-?-?-?-?-?-?-?-?-?-?- Negative 140 -?-?-?-?-?-?-?-?-?-?-?-?- LC- no vb/crajethro ng. 28 week labs ordered. precautions given for low lying placenta. US ordered for 28 weeks 11/11/22 -?-?-?-?-?-?-?-?-?-?-?-?- 24w 2d 108 lb 2 oz 178 lb 2 oz -?-?-?-?-?-?-?-?-?-?-?-?- 140 24 -?-?-?-?-?-?-?-?-?-?-?-?- LC- second rhoga m given after bleeding yesterday. KB positive. denies traumatic event. no LC- second rhogam given afte r bleeding yesterday. KB positive. denies traumatic event. will obtain MFM consultation for co-management of viable with positive KB. LC- second rhogam given afte r bleeding yesterday. KB positive. denies traumatic event.no further vaginal bleeding today. pelvic rest, no lifting greater than 10 pounds, working from home. will obtain MFM consultation for co-management of viable with positive KB. 12/11/22 -?-?-?-?-?-?-?-?-?-?-?-?- 28w 4d 177 lb 6 oz 110/70 Trac e -?-?-?-?-?-?-?-?-?-?-?-?- Negative 140 -?-?-?-?-?-?-?-?-?-?-?-?- SM- no vb lof go od fm, is on vaginal progesterone now. 12/21/22 -?-?-?-?-?-?-?-?-?-?-?-?- 30w 0d 181 lb 2 oz 105/73 Nega tive -?-?-?-?-?-?-?-?-?-?-?-?- Negative 135 30 -?-?-?-?-?-?-?-?-?-?-?-?- LC- no vb/ctx/lo f. good fm. weekly bpp for poly. 3hgtt negative with summa. Physical Exam Const alert, oriented x3 and no apparent distress Resp normal respiratory effort, normal air movement, no retractions and no use of accessory muscles Cardio regular rate and regular rhythm GI soft to palpation and non-tender Inspection: Palpation: soft Rectal Exam: deferred no CVA tenderness and external exam normal Bimanual Exam - Vag & Uterus: uterus non-tender and other gravid uterus, normal for gestational age OB / External & Speculum: Negative for herpetic lesions Manual OB Exam: estimated gestational size appropriate and presentation cephalic Amniotic Fluid: no amniotic fluid noted Extremity normal to inspection and full ROM Neuro Motor Exam: strength 5/5 throughout and muscle tone normal throughout Deep Tendon Reflexes: Rt Patellar (L4): 2+ and Lt Patellar (L4): 2+ NST FHR Rate Baby A Variability:: Moderate Accelerations:: 15 x 15 Decelerations:: None NST Reactive:: Yes FHR Category:: Category I Assessment & Plan (1) Anemia affecting : COMMENT: start iron supplement on 12/21. redraw cbc in 4 weeks 01/21 (2) Polyhydramnios affecting : COMMENT: weekly bpp per MFM (3) Vaginal bleeding during , antepartum: COMMENT: Repeat t and s and KB test 12/11 negative 11/10- to WP. Rhogam and US + Kleihauer Cheryl had elevated MCA and poly- following with MFM. also elevated GCT and MFM ordering 3 hr. gtt. rpt dose of rhogam on 12/11 appt Parvo and toxo titers are pending. (4) UTI in : COMMENT: In [place], given bactrim. No urine culture. Sx resolved. (5) Obesity affecting : COMMENT: passed 1 hour, encouraged healthy weight gain (6) Rh negative status during : COMMENT: rhogam at 28 weeks and PRN (7) : QUALIFIERS: Weeks of gestation: 30 weeks Qualified Code(s): Z3A.30 - 30 weeks gestation of COMMENT: NIPT low risk, carrier screening and afp declined. anatomy reviewed. (8) Supervision of normal : COMMENT: [id number] EASTON [birth year] girl Hilario Falcon. Spouse-Cristian Charges/Coding Procedures Urinary/Genital 52xxx-59xxx: 28440-54 non-stress test Interp Multi Select Codes Urinary/Genital Urinary/Genital CPT Codes: 03415-79 non-stress test Interp
== END 2022-12-28 11:00 | disposition home or self-care (01) ==
LOC: WPOUT 09:37 → WP 09:37
PROVIDERS: Referring Provider Registered Nurse; Visit Provider Registered Nurse
DX: O40.3XX0 Polyhydramnios, third trimester, not applicable or unspecified (principal); O36.0930 Maternal care for other rhesus isoimmunization, third trimester, not applicable or unspecified; O99.213 Obesity complicating pregnancy, third trimester; O46.93 Antepartum hemorrhage, unspecified, third trimester; E66.9 Obesity, unspecified; Z3A.30 30 weeks gestation of pregnancy; O99.013 Anemia complicating pregnancy, third trimester
CPT/HCPCS: 59025; 59050

== ENCOUNTER → 2023-01-06 | Outpatient (CLI) | payer OTHER, SELFPAY ==
--- NOTE | 2023-01-06 08:50 | US_ITS ---
STUDY: OBSTETRICAL ULTRASOUND - BIOPHYSICAL PROFILE REASON FOR EXAM: Female, 27 years old polyhydramnios LMP: May 25, 2022. PRIOR ULTRASOUND: Comparison is made with prior study dated December 28, 2022. TECHNIQUE: Transabdominal TECHNICAL QUALITY: Adequate. FINDINGS: There is a single intrauterine fetus. The fetus is in a cephalic presentation. There is demonstrated cardiac activity with a heart rate of 137 bpm. There is a normal amniotic fluid volume. The largest amniotic fluid pocket measures 4.5 cm. The amniotic fluid index (ANGELA) is 15.3 cm. The placenta is anterior in location and is not low lying. There are Grade 2 placental changes. Age by LMP: 32 weeks, 2 days. EASTON by LMP: March 01, 2023. BIOPHYSICAL PROFILE: Breathing Movements (FBM): 2 Gross Body Movements (GBM): 2 Tone (FT): 2 Amniotic Fluid Volume (AFV): 2 TOTAL SCORE: US/Biophysical Prof W/O Non Stres IMPRESSION: Normal biophysical profile of 01/19. Electronically Signed: Jewel Carvajal MD at 9:44 EDT ,
== END | disposition home or self-care (01) ==
PROVIDERS: Referring Provider Obstetrics & Gynecology; Visit Provider Obstetrics & Gynecology
DX: O40.9XX0 Polyhydramnios, unspecified trimester, not applicable or unspecified (principal); Z3A.00 Weeks of gestation of pregnancy not specified
CPT/HCPCS: 76819

== ENCOUNTER 2023-01-11 08:03 | Outpatient (CLI) | payer OTHER, SELFPAY ==
--- NOTE | 2023-01-11 08:06 | US_ITS ---
STUDY: OBSTETRICAL ULTRASOUND - BIOPHYSICAL PROFILE REASON FOR EXAM: Female, 27 years old polyhydramnios LMP: May 25, 2022. PRIOR ULTRASOUND: Comparison is made with prior study January 06, 2023. TECHNIQUE: Transabdominal TECHNICAL QUALITY: Adequate. FINDINGS: There is a single intrauterine fetus. The fetus is in a cephalic presentation. There is demonstrated cardiac activity with a heart rate of 137 bpm. There is a normal amniotic fluid volume. The largest amniotic fluid pocket measures 5.4 cm. The amniotic fluid index (ANGELA) is 16.8 cm. The placenta is anterior in location and is not low lying. There are Grade 2 placental changes. Age by LMP: 33 weeks, 0 days. EASTON by LMP: March 01, 2023. BIOPHYSICAL PROFILE: Breathing Movements (FBM): 0 Gross Body Movements (GBM): 2 Tone (FT): 2 Amniotic Fluid Volume (AFV): 2 TOTAL SCORE: 6 / 8 US/Biophysical Prof W/O Non Stres IMPRESSION: biophysical profile of 6/8. The referring physician was notified. Electronically Signed: Jewel Carvajal MD at 9:10 EDT ,
[2023-01-11 09:12] VITALS: BMI 32.2
[2023-01-11 09:13] VITALS: BP 120/77
[2023-01-11 09:14] VITALS: PULSE 245; PULSE 95; O2SAT 93; O2SAT 98
--- NOTE | 2023-01-12 03:21 | OB.TRI.HP_ITS ---
HPI - General General Date of Admission: 01/11/23 Date of Service: 01/11/23 Chief Complaint: 6/8 BPP HPI Narrative SHIRLENE CALDERON, is a 27 F who presents at 33 weeks with 6/8 BPP needing extended monitoring. +fm, no lof/vb/ctx. recieving BPP for polyhydramnios. Maternal Data Information E[place] Calculator Estimated Delivery Date Method Current WG Current Estimate 03/01/23 LMP (Certain) 33w 1d PFSH PFSH Medical History COVID-19 Frequent headaches Migraine Home Medications prenat.vits,sana,tal-zsez-xqiyv ( Vitamin tablet) 1 tab PO QDAY 05/21/17 [History Last Taken 12/22/22 13:00 1 TAB] famotidine 20 mg tablet (Pepcid) 20 mg PO DAILY #30 tabs 08/07/22 [Rx Last Taken 12/22/22 13:00 20 mg] progesterone micronized 100 mg vaginal insert vaginal Short cervix, [place] Basilio 12/22/22 [History Last Taken 01/10/23] Allergy/AdvReac Type Severity Reaction Status Date / Time No Known Allergies Allergy Verified 01/11/23 09:10 Family History Grandmother Diabetes Breast cancer Aunt Breast cancer Mother Diabetes Gestational Grandfather Colon cancer Father Myocardial infarction Surgical History H/O adenoidectomy History of tonsillectomy History of wisdom tooth extraction, class II edentulism Social History adopted: No household members: spouse and children housing: house current occupational status: employed 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 current occupational exposures/hazards: No pets and animals: Yes pets and animals: dog(s) history of recent travel: No sexually active: Yes Smoking Status: Never smoker second hand exposure: No alcohol intake: current details: socially substance use type: does not use well-balanced diet: about half the time caffeine: Yes Type: coffee Number of servings: 1 eating out: 1-3 times/week what type of physical activity do you participate in: walking and weight training frequency: 1-2 times per week seatbelt use: always do you feel safe at home: Yes additional social history: Cristian- Spherion staffing History 3 Elective abortions Hx Para 2 Spontaneous abortions Hx # Term Pregnancies Ectopic pregnancies Hx # Pregnancies Multiple births # of living children 2 Past Pregnancies Del. Date Name GA/Weeks Outcome Route Bth Weight Infant Gen Labor Lgth Anesthesia Del Locatn Provider FOB Unknown 2017 Nishant 38 live - full term 7lbs Male 8 e pidural [facility] SM Cristian 09/12/20 Hilario 38 live - full term 8lbs 14oz Male e pidural [facility] GP Delivery Date: Last Updated by: Jannie Lind No complications to note Delivery Date: 09/12/20 Last Updated by: Mya Gan Midline, Perineal Extension/lac, 2nd degree Visit Details Expected Delivery Route/Plan Lsvd abor Preferences- CB/BF classes: [] labor support person: [] labor intervention preferences: [] pain management options preferred: [] cut cord/dad catch: [] : yes PP control planned: [] discussed possible routes of delivery and associated risks: [] special requests: [] Plans Covid status: discussed Flu vaccine: discussed Tdap vaccine:given Rhogam: obtained 12/11 LARC form signed: completed. Problem list reviewed and updated with the most current plan of care details and appropriate orders placed. Relevant counseling for the gestational age provided. Continue routine care and follow up unless otherwise noted in visit notes/problem list details OB Flowsheet Initial Weight: Not Recorded Date -?-?-?-?-?-?-?-?-?-?-?-?- EGA Weight BP Urine Prot -?-?-?-?-?-?-?-?-?-?-?-?- Glucose FHR FuHt Pres Dilation -?-?-?-?-?-?-?-?-?-?-?-?- Effaced St Visit Note 08/03/22 -?-?-?-?-?-?-?-?-?-?-?-?- 10w 0d 181 lb 128/82 -?-?-?-?-?-?-?-?-?--?-?-?- 170 -?-?-?-?-?-?-?-?-?-?-?-?- SM- CRL 2.75cm c ons with LMP 09/04/22 -?-?-?-?-?-?-?-?-?-?-?-?- 14w 4d 176 lb 130/82 Negative -?-?-?-?-?-?-?-?-?-?-?-?- Negative 150 -?-?-?-?-?-?-?-?-?-?-?-?- JV- low risk NIP T GIRL! has 2 boys at home JV- low risk NIPT GIRL! has 2 boys at home . taking pepcid without much relief. will try reglan. 09/29/22 -?-?-?-?-?-?-?-?-?-?-?-?- 18w 1d 172 lb 8 oz 116/72 Nega tive -?-?-?-?-?-?-?-?-?-?-?-?- Negative 159 -?-?-?-?-?-?-?-?-?-?-?-?- MH-No VB. Susan teresa. In [place] last week:UTI and tx w/Bactrim. Sx resolved. 10/28/22 -?-?-?-?-?-?-?-?-?-?-?-?- 22w 2d 177 lb 116/72 Trace -?-?-?-?-?-?-?-?-?-?-?-?- Negative 140 -?-?-?-?-?-?-?-?-?-?-?-?- LC- no vb/crampi ng. 28 week labs ordered. precautions given for low lying placenta. US ordered for 28 weeks 11/11/22 -?-?-?-?-?-?-?-?-?-?-?-?- 24w 2d 108 lb 2 oz 178 lb 2 oz -?-?-?-?-?-?-?-?-?-?-?-?- 140 24 -?-?-?-?-?-?-?-?-?-?-?-?- LC- second rhoga m given after bleeding yesterday. KB positive. denies traumatic event. no LC- second rhogam given afte r bleeding yesterday. KB positive. denies traumatic event. will obtain MFM consultation for co-management of viable with positive KB. LC- second rhogam given afte r bleeding yesterday. KB positive. denies traumatic event.no further vaginal bleeding today. pelvic rest, no lifting greater than 10 pounds, working from home. will obtain MFM consultation for co-management of viable with positive KB. 12/11/22 -?-?-?-?-?-?-?-?-?-?-?-?- 28w 4d 177 lb 6 oz 110/70 Trac e -?-?-?-?-?-?-?-?-?-?-?-?- Negative 140 -?-?-?-?-?-?-?-?-?-?-?-?- SM- no vb lof go od fm, is on vaginal progesterone now. 12/21/22 -?-?-?-?-?-?-?-?-?-?-?-?- 30w 0d 181 lb 2 oz 105/73 Nega tive -?-?-?-?-?-?-?-?-?-?-?-?- Negative 135 30 -?-?-?-?-?-?-?-?-?-?-?-?- LC- no vb/ctx/lo f. good fm. weekly bpp for poly. 3hgtt negative with summa. 01/06/23 -?-?-?-?-?-?-?-?-?-?-?-?- 32w 2d 180 lb 8 oz 120/69 Nega tive -?-?-?-?-?-?-?-?-?-?-?-?- Negative 166 33 -?-?-?-?-?-?-?-?-?-?-?-?- JV- last bpp radha wed vy was down to 18 cm. will reach out to MFM for further recommendation on following as we were initially following for + KB that was resolved. NST FHR Rate Baby A Baseline: 130 Variability:: Moderate Accelerations:: 15 x 15 Decelerations:: None NST Reactive:: Yes FHR Category:: Category I Assessment & Plan (1) Polyhydramnios affecting : COMMENT: weekly bpp per MFM (2) Obesity affecting : COMMENT: passed 1 hour, encouraged healthy weight gain (3) Rh negative status during : COMMENT: rhogam at 28 weeks and PRN (4) : QUALIFIERS: Weeks of gestation: 32 weeks Qualified Code(s): Z3A.32 - 32 weeks gestation of COMMENT: NIPT low risk, carrier screening and afp declined. anatomy reviewed. (5) Supervision of normal : COMMENT: [id number] EASTON [birth year] girl Hilario Falcon. Spouse-Cristian PLAN: Plan Patient presents for triage evaluation secondary to 6/8 BPP. FHT: Moderate variability reactive no decelerations category I tracing [place]: no Contractions Assessment and plan: Reactive NST, reassuring maternal and status patient discharged to home to follow-up in office. See problem list details for additional plan information. Charges/Coding Procedures Urinary/Genital 52xxx-59xxx: 20952-31 non-stress test Interp
== END 2023-01-11 10:00 | disposition home or self-care (01) ==
LOC: US 08:05 → WPOUT 09:03 → WP 09:03
PROVIDERS: Referring Provider Registered Nurse; Visit Provider Registered Nurse
DX: O40.3XX0 Polyhydramnios, third trimester, not applicable or unspecified (principal); Z3A.33 33 weeks gestation of pregnancy; O99.213 Obesity complicating pregnancy, third trimester; E66.8 Other obesity; Z67.91 Unspecified blood type, Rh negative
CPT/HCPCS: 59025; 59050; 76819; 99221; G0378

== ENCOUNTER → 2023-01-20 | Outpatient (CLI) | payer OTHER, SELFPAY ==
--- NOTE | 2023-01-20 07:56 | US_ITS ---
STUDY: OBSTETRICAL ULTRASOUND - BIOPHYSICAL PROFILE REASON FOR EXAM: Female, 27 years old polyhydramnios LMP: May 25, 2022. PRIOR ULTRASOUND: Comparison is made with prior study dated January 11, 2023 TECHNIQUE: Transabdominal TECHNICAL QUALITY: Adequate. FINDINGS: There is a single intrauterine fetus. The fetus is in a cephalic presentation. There is demonstrated cardiac activity with a heart rate of 136 bpm. There is a normal amniotic fluid volume. The largest amniotic fluid pocket measures 7.37 cm. The amniotic fluid index (ANGELA) is 18.24 cm. The placenta is grade 3 There are Grade 2 placental changes. Age by LMP: 30 weeks, 2 days. EASTON by LMP: March 01, 2023. BIOPHYSICAL PROFILE: Breathing Movements (FBM): 2 Gross Body Movements (GBM): 2 Tone (FT): 2 Amniotic Fluid Volume (AFV): 2 TOTAL SCORE: 8 / 8 US/Biophysical Prof W/O Non Stres IMPRESSION: Normal biophysical profile of 8/8. Electronically Signed: Jewel Carvajal MD at 15:03 EDT ,
== END | disposition home or self-care (01) ==
PROVIDERS: Referring Provider Obstetrics & Gynecology; Visit Provider Obstetrics & Gynecology
DX: O40.9XX0 Polyhydramnios, unspecified trimester, not applicable or unspecified (principal); Z3A.00 Weeks of gestation of pregnancy not specified
CPT/HCPCS: 76819

== ENCOUNTER 2023-01-27 07:52 | Outpatient (CLI) | payer OTHER, SELFPAY ==
--- NOTE | 2023-01-27 07:56 | US_ITS ---
STUDY: OBSTETRICAL ULTRASOUND - BIOPHYSICAL PROFILE REASON FOR EXAM: Female, 27 years old polyhydramnios LMP: May 25, 2022. PRIOR ULTRASOUND: Comparison is made with prior study dated January 20, 2023. TECHNIQUE: Transabdominal TECHNICAL QUALITY: Adequate. FINDINGS: There is a single intrauterine fetus. The fetus is in a cephalic presentation. There is demonstrated cardiac activity with a heart rate of 140 bpm. There is a normal amniotic fluid volume. The largest amniotic fluid pocket measures 3.7 cm. The amniotic fluid index (ANGELA) is 11.6 cm. The placenta is anterior in location and is not low lying. There are Grade 2 placental changes. Age by LMP: 35 weeks, 2 days. EASTON by LMP: March 01, 2023. Gender: Female BIOPHYSICAL PROFILE: Breathing Movements (FBM): 0 Gross Body Movements (GBM): 2 Tone (FT): 2 Amniotic Fluid Volume (AFV): 2 TOTAL SCORE: 6 / 8 US/Biophysical Prof W/O Non Stres IMPRESSION: biophysical profile of 6/8. Ordering physician was notified of the results. Electronically Signed: Jewel Carvajal MD at 10:32 EDT ,
[2023-01-27 09:07] VITALS: BP 123/68; PULSE 81; TEMP 37.2
[2023-01-27 09:16] VITALS: BMI 32.5
--- NOTE | 2023-01-27 10:24 | OB.TRI.HP_ITS ---
HPI - General HPI Narrative SHIRLENE CALDERON, is a 27 F who presents for an nst due to bpp 6/8 (2 points off for breathing) she denies lof ,vaginal bleeding, or dec fm. Maternal Data Information EASTON Calculator Estimated Delivery Date Method Current WG Current Estimate 03/01/23 LMP (Certain) 35w 2d PFSH PFSH Medical History COVID-19 Frequent headaches Migraine Home Medications prenat.vits,sana,[id number]-jaro-itnpv ( Vitamin tablet) 1 tab PO QDAY 05/21/17 [History Last Taken 01/26/23 17:00 1 TAB] famotidine 20 mg tablet (Pepcid) 20 mg PO DAILY #30 tabs 08/07/22 [Rx Last Taken 01/26/23 17:00 20 mg] progesterone micronized 100 mg vaginal insert vaginal Short cervix, Taylor Basilio 12/22/22 [History Last Taken 01/26/23 21:00 100] Allergy/AdvReac Type Severity Reaction Status Date / Time No Known Allergies Allergy Verified 01/27/23 09:56 Family History Grandmother Diabetes Breast cancer Aunt Breast cancer Mother Diabetes Gestational Grandfather Colon cancer Father Myocardial infarction Surgical History H/O adenoidectomy History of tonsillectomy History of wisdom tooth extraction, class II edentulism Social History adopted: No household members: spouse and children housing: house current occupational status: employed 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 current occupational exposures/hazards: No pets and animals: Yes pets and animals: dog(s) history of recent travel: No sexually active: Yes Smoking Status: Never smoker second hand exposure: No alcohol intake: current details: socially substance use type: does not use well-balanced diet: about half the time caffeine: Yes Type: coffee Number of servings: 1 eating out: 1-3 times/week what type of physical activity do you participate in: walking and weight training frequency: 1-2 times per week seatbelt use: always do you feel safe at home: Yes additional social history: Cristian- [employer] History 3 Elective abortions Hx Para 2 Spontaneous abortions Hx # Term Pregnancies Ectopic pregnancies Hx # Pregnancies Multiple births # of living children 2 Past Pregnancies Del. Date Name GA/Weeks Outcome Route Bth Weight Gen Labor Lgth Anesthesia Del Locatn Provider FOB Unknown 2017 Nishant 38 live - full term 7lbs Male 8 e pidural [facility] SM Cristian 09/12/20 Hilario 38 live - full term 8lbs 14oz Male e pidural [facility] GP Delivery Date: Last Updated by: Jannie Lind No complications to note Delivery Date: 09/12/20 Last Updated by: Mya Gan Midline, Perineal Extension/lac, 2nd degree Visit Details Expected Delivery Route/Plan Lsvd abor Preferences- CB/BF classes: [] labor support person: [] labor intervention preferences: [] pain management options preferred: [] cut cord/dad catch: [] : yes PP control planned: [] discussed possible routes of delivery and associated risks: [] special requests: [] Plans Covid status: discussed Flu vaccine: discussed Tdap vaccine:given Rhogam: obtained 12/11 LARC form signed: completed. Problem list reviewed and updated with the most current plan of care details and appropriate orders placed. Relevant counseling for the gestational age provided. Continue routine care and follow up unless otherwise noted in visit notes/problem list details OB Flowsheet Initial Weight: Not Recorded Date -?-?-?-?-?-?-?-?-?-?-?-?- EGA Weight BP Urine Prot -?-?-?-?-?-?-?-?-?-?-?--?- Glucose FHR FuHt Pres Dilation -?-?-?-?-?-?-?-?-?-?-?-?- Effaced St Visit Note 08/03/22 -?-?-?-?-?-?-?-?-?-?-?-?- 10w 0d 181 lb 128/82 -?-?-?-?-?-?-?-?-?-?-?-?- 170 -?-?-?-?-?-?-?-?-?-?-?-?- SM- CRL 2.75cm c ons with LMP 09/04/22 -?-?-?-?-?-?-?-?-?-?-?-?- 14w 4d 176 lb 130/82 Negative -?-?-?-?-?-?-?-?-?-?-?-?- Negative 150 -?-?-?-?-?-?-?-?-?-?-?-?- JV- low risk NIP T GIRL! has 2 boys at home JV- low risk NIPT GIRL! has 2 boys at home . taking pepcid without much relief. will try reglan. 09/29/22 -?-?-?-?-?-?-?-?-?-?-?-?- 18w 1d 172 lb 8 oz 116/72 Nega tive -?-?-?-?-?-?-?-?-?-?-?-?- Negative 159 -?-?-?-?-?-?-?-?-?-?-?-?- MH-No VB. Susan teresa. In [place] last week:UTI and tx w/Bactrim. Sx resolved. 10/28/22 -?-?-?-?--?-?-?-?-?-?-?-?- 22w 2d 177 lb 116/72 Trace -?-?-?-?-?-?-?-?-?-?-?-?- Negative 140 -?-?-?-?-?-?-?-?-?-?-?-?- LC- no vb/crampi ng. 28 week labs ordered. precautions given for low lying placenta. US ordered for 28 weeks 11/11/22 -?-?-?-?-?-?-?-?-?-?-?-?- 24w 2d 108 lb 2 oz 178 lb 2 oz -?-?-?-?-?-?-?-?-?-?-?-?- 140 24 -?-?-?-?-?-?-?-?-?-?-?-?- LC- second rhoga m given after bleeding yesterday. KB positive. denies traumatic event. no LC- second rhogam given afte r bleeding yesterday. KB positive. denies traumatic event. will obtain MFM consultation for co-management of viable with positive KB. LC- second rhogam given afte r bleeding yesterday. KB positive. denies traumatic event.no further vaginal bleeding today. pelvic rest, no lifting greater than 10 pounds, working from home. will obtain MFM consultation for co-management of viable with positive KB. 12/11/22 -?-?-?-?-?-?-?-?-?-?-?-?- 28w 4d 177 lb 6 oz 110/70 Trac e -?-?-?-?-?-?-?-?-?-?-?-?- Negative 140 -?-?-?-?--?-?-?-?-?-?-?-?- SM- no vb lof go od fm, is on vaginal progesterone now. 12/21/22 -?-?-?-?-?-?-?-?-?-?-?-?- 30w 0d 181 lb 2 oz 105/73 Nega tive -?-?-?-?--?-?-?-?-?-?-?-?- Negative 135 30 -?-?-?-?-?-?-?-?-?-?-?-?- LC- no vb/ctx/lo f. good fm. weekly bpp for poly. 3hgtt negative with [facility]. 01/06/23 -?-?-?-?-?-?-?-?-?-?-?-?- 32w 2d 180 lb 8 oz 120/69 Nega tive -?-?-?-?-?-?-?-?-?-?-?-?- Negative 166 33 -?-?-?-?-?-?-?-?-?-?-?-?- JV- last bpp radha wed angela was down to 18 cm. will reach out to [facility] for further recommendation on following as we were initially following for + KB that was resolved. 01/22/23 -?-?-?-?-?-?-?-?-?-?-?-?- 34w 4d 186 lb 4 oz 120/79 Trac e -?-?-?-?-?-?-?-?-?-?-?-?- Negative 140 34 -?-?-?-?-?-?-?-?-?-?-?-?- SM- no vb lof go od fm no regular ctx NST FHR Rate Baby A Baseline: 140 Variability:: Moderate Accelerations:: 15 x 15 Decelerations:: None NST Reactive:: Yes FHR Category:: Category I Uterine Activity:: irritability only Assessment & Plan (1) Anemia affecting : COMMENT: start iron supplement on 12/21. redraw cbc in 4 weeks 01/21 (2) Polyhydramnios affecting : COMMENT: weekly bpp per MFM, resolved nl ANGELA now, still recommended to continue weekly testing (3) Vaginal bleeding during , antepartum: COMMENT: Repeat t and s and KB test 12/11 negative 11/10- to WP. Rhogam and US + Kleihauer Cheryl had elevated MCA and poly- following with MFM. also elevated GCT and MFM ordering 3 hr. gtt. rpt dose of rhogam on 12/11 appt Parvo and toxo titers are pending. (4) UTI in : COMMENT: In [place], given bactrim. No urine culture. Sx resolved. (5) Obesity affecting : COMMENT: passed 1 hour, encouraged healthy weight gain (6) Rh negative status during : COMMENT: rhogam at 28 weeks and PRN (7) : QUALIFIERS: Weeks of gestation: 34 weeks Qualified Code(s): Z3A.34 - 34 weeks gestation of COMMENT: NIPT low risk, carrier screening and afp declined. anatomy reviewed. (8) Supervision of normal : COMMENT: [id number] EASTON 03[birth year] girl Hilario Falcon. Spouse-Cristian Charges/Coding Multi Select Codes Urinary/Genital Urinary/Genital CPT Codes: 79550-48 non-stress test Interp
== END 2023-01-27 10:36 | disposition home or self-care (01) ==
LOC: US 07:53 → WPOUT 09:01 → WP 09:03
PROVIDERS: Referring Provider Obstetrics & Gynecology; Visit Provider Obstetrics & Gynecology
DX: O99.013 Anemia complicating pregnancy, third trimester (principal); O40.3XX0 Polyhydramnios, third trimester, not applicable or unspecified; O99.213 Obesity complicating pregnancy, third trimester; O26.893 Other specified pregnancy related conditions, third trimester; Z3A.34 34 weeks gestation of pregnancy
CPT/HCPCS: 59025; 59050; 76819; 99221; G0378

== ENCOUNTER → 2023-02-02 | Outpatient (CLI) | payer OTHER, SELFPAY | END | disposition home or self-care (01) | LOC: LABSPEC 14:23 | PROVIDERS: Referring Provider Advanced Practice Midwife; Visit Provider Advanced Practice Midwife | DX: Z34.90 Encounter for supervision of normal pregnancy, unspecified, unspecified trimester (principal); Z3A.00 Weeks of gestation of pregnancy not specified | CPT/HCPCS: 87081 ==

== ENCOUNTER 2023-02-03 09:20 | Outpatient (CLI) | payer OTHER, SELFPAY ==
[2023-02-03 09:29] VITALS: BMI 33.3
[2023-02-03 09:32] VITALS: BP 129/74; PULSE 73; TEMP 36.8
[2023-02-03 09:35] VITALS: O2SAT 98
--- NOTE | 2023-02-03 16:46 | OB.TRI.NOTE ---
HPI - General General Date of Admission: 02/03/23 HPI Narrative SHIRLENE CALDERON, is a 27 y/o @36 weeks 2 days who presents to L&D for an NST due to bpp 11/19. [facility] Medical History (Updated 02/19/23 @ 16:[address] Tatianna Strauss DO) COVID-19 Frequent headaches Migraine Polyhydramnios affecting Rh negative status during Vaginal delivery Home Medications prenat.vits,sana,odp-cwpa-qtdcc ( Vitamin tablet) 1 tab PO QDAY 05/21/17 [History Last Taken 02/06/23] famotidine 20 mg tablet (Pepcid) 20 mg PO DAILY reflux #30 tabs 08/07/22 [Rx Last Taken 02/06/23] ferrous sulfate 325 mg (65 mg iron) tablet (iron) 325 mg PO DAILY anemia 02/06/23 [History Last Taken 02/05/23] Allergy/AdvReac Type Severity Reaction Status Date / Time No Known Allergies Allergy Verified 02/06/23 22:26 Family History Grandmother Diabetes Breast cancer Aunt Breast cancer Mother Diabetes Gestational Grandfather Colon cancer Father Myocardial infarction Surgical History H/O adenoidectomy History of tonsillectomy History of wisdom tooth extraction, class II edentulism Social History adopted: No household members: spouse and children housing: house current occupational status: employed 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 current occupational exposures/hazards: No pets and animals: Yes pets and animals: dog(s) history of recent travel: No sexually active: Yes Smoking Status: Never smoker second hand exposure: No alcohol intake: current details: socially substance use type: does not use well-balanced diet: about half the time caffeine: Yes Type: coffee Number of servings: 1 eating out: 1-3 times/week what type of physical activity do you participate in: walking and weight training frequency: 1-2 times per week seatbelt use: always do you feel safe at home: Yes additional social history: [facility] History 3 Elective abortions Hx Para 2 Spontaneous abortions Hx # Term Pregnancies Ectopic pregnancies Hx # Pregnancies Multiple births # of living children 3 Past Pregnancies Del. Date Name GA/Weeks Outcome Route Bth Weight Infant Gen Labor Lgth Anesthesia Del Locatn Provider FOB Unknown 2017 Nishant 38 live - full term 7lbs Male 8 epidural [facility] SM Cristian 09/12/20 Hilario 38 live - full term 8lbs 14oz Male epidural [facility] GP 02/07/23 Sharita live - full term Female [facility] Caryl Worthington Delivery Date: Last Updated by: Jannie Lind No complications to note Delivery Date: 09/12/20 Last Updated by: Mya Gan Midline, Perineal Extension/lac, 2nd degree NST FHR Rate Baby A Baseline: 130 Variability:: Moderate Accelerations:: 15 x 15 Decelerations:: None NST Reactive:: Yes FHR Category:: Category I Assessment & Plan (1) : QUALIFIERS: Weeks of gestation: 34 weeks Qualified Code(s): Z3A.34 - 34 weeks gestation of COMMENT: NIPT low risk, carrier screening and afp declined. anatomy reviewed. (2) Vaginal bleeding during , antepartum: COMMENT: Repeat t and s and KB test 12/11 negative 11/10- to WP. Rhogam and US + Aureliano Luna had elevated MCA and poly- following with MFM. also elevated GCT and MFM ordering 3 hr. gtt. rpt dose of rhogam on 12/11 appt Parvo and toxo titers are pending. PLAN: Plan NSt was reactive making overall BPP 01/21. Patient reassured and plan is to dc to home with close follow up in 3-4 days Charges/Coding Multi Select Codes Urinary/Genital Urinary/Genital CPT Codes: 08093-74 non-stress test Interp
== END 2023-02-03 10:50 | disposition home or self-care (01) ==
LOC: WPOUT 09:24 → WP 09:25
PROVIDERS: Referring Provider Obstetrics & Gynecology; Visit Provider Obstetrics & Gynecology
DX: O46.93 Antepartum hemorrhage, unspecified, third trimester (principal); Z3A.36 36 weeks gestation of pregnancy; Z79.899 Other long term (current) drug therapy

== ENCOUNTER → 2023-02-03 | Outpatient (CLI) | payer OTHER, SELFPAY ==
--- NOTE | 2023-02-03 07:55 | US_ITS ---
INDICATION: growth- 36wk -hx of polyhydramnios EXAMINATION: Ultrasound US OB Limited 1 Or More Fetus TECHNIQUE: transabdominal pelvic ultrasound was performed. Grayscale, spectral waveform, and color flow Doppler evaluation of the adnexa. COMPARISON: 12/22/2022 LMP: 05/25/2022 Beta-hCG: Unknown. Provided EGA: 36 weeks 2 days FINDINGS: INTRAUTERINE GESTATION(s): Single. ESTIMATED GESTATIONAL AGE: 36 weeks 0 days. ESTIMATED DUE DATE (EASTON): 03/03/2023 HEART MOTION is 130 bpm. AMNIOTIC FLUID INDEX (ANGELA): 15.3 cm ESTIMATED WEIGHT: 2900 g or 6 lbs. 6 oz. Percentile 52nd%. BIOPHYSICAL PROFILE (BPP): Not assessed. PRESENTATION: Cephalic PLACENTA: Anterior. There is no placenta previa or abruption. CERVIX: The cervix is not visualized. IMPRESSION: Single live intrauterine of 36 weeks 0 days. Electronically Signed: Klever Escudero MD at 21:20 EDT , INDICATION: growth- 36wk -- BPP-hx of polyhydramnios EXAMINATION: Ultrasound US Biophysical Profile W/O Nonst TECHNIQUE: Transabdominal pelvic ultrasound was performed. COMPARISON: 01/27/2023, OB ultrasound 02/03/2023 LMP: 05/25/2022 Beta-hCG: Unknown. Provided EGA: 36 weeks 2 days FINDINGS: INTRAUTERINE GESTATION(s): Single. HEART MOTION is 130 bpm. AMNIOTIC FLUID INDEX (ANGELA): 15.3 cm BIOPHYSICAL PROFILE (BPP): 11/19 -- Breathin/2 -- Movement: 2/2. -- Tone: 2/2. --ANGELA: 2/2. PRESENTATION: Cephalic PLACENTA: Anterior. There is no placenta previa or abruption. US/OB Limited With Biometrics IMPRESSION: Single live intrauterine . Biophysical profile score 6/8 due to insufficient breathing movements. Electronically Signed: Klever Escudero MD at 21:23 EDT ,
== END | disposition home or self-care (01) ==
PROVIDERS: Referring Provider Obstetrics & Gynecology; Visit Provider Obstetrics & Gynecology
DX: O40.3XX0 Polyhydramnios, third trimester, not applicable or unspecified (principal); O99.013 Anemia complicating pregnancy, third trimester; Z3A.36 36 weeks gestation of pregnancy
CPT/HCPCS: 59025; 59050; 76816; 76819; 99221; G0378

== ENCOUNTER 2023-02-06 22:15 | Inpatient (IN) | payer OTHER, SELFPAY ==
[2023-02-06 17:13] VITALS: BMI 33.1
--- NOTE | 2023-02-06 17:15 | OB.TRI.PN_ITS ---
Progress Notes Date of Service: 02/06/23 Progress Note: Patient presents for triage evaluation secondary to fall. She fell down 2 [address] stairs on her buttocks approximately 4 hours prior to arrival to hospital FHT: 140 Moderate variability reactive no decelerations category I tracing [place]: no Contractions Assessment and plan: Reactive NST, reassuring maternal and status patient discharged to home to follow-up follow up in office. See problem list details for additional plan information. Assessment & Plan (1) Anemia affecting : COMMENT: start iron supplement on 12/21. redraw cbc in 4 weeks 01/21 (2) Polyhydramnios affecting : COMMENT: weekly bpp per MFM, resolved nl ANGELA now, still recommended to continue weekly testing (3) Vaginal bleeding during , antepartum: COMMENT: Repeat t and s and KB test 12/11 negative 11/10- to WP. Rhogam and US + Kleihauer Cheryl had elevated MCA and poly- following with MFM. also elevated GCT and MFM order ing 3 hr. gtt. rpt dose of rhogam on 12/11 appt Parvo and toxo titers are pending. (4) UTI in : COMMENT: In [place], given bactrim. No urine culture. Sx resolved. (5) Obesity affecting : COMMENT: passed 1 hour, encouraged healthy weight gain (6) Rh negative status during : COMMENT: rhogam at 28 weeks and PRN (7) : QUALIFIERS: Weeks of gestation: 34 weeks Qualified Code(s): Z3A.34 - 34 weeks gestation of COMMENT: NIPT low risk, carrier screening and afp declined. anatomy reviewed. (8) Supervision of normal : COMMENT: [id number] EASTON 03/[birth year] girl Hilario Falcon. Spouse-Cristian (9) Fall: COMMENT: 02/06/23 PLAN: rhogam given 02/06/23
[2023-02-06 17:17] VITALS: BP 125/75; PULSE 86; TEMP 37.2; O2SAT 98
[2023-02-06 20:17] VITALS: BP 125/72; PULSE 80
[2023-02-06 20:18] VITALS: PULSE 84; TEMP 37.3; O2SAT 100
--- NOTE | 2023-02-06 22:16 | HP.PCM.OB_ITS ---
HPI - General General Date of Admission: 02/06/23 Date of Service: 02/06/23 HPI Narrative SHIRLENE CALDERON, is a 27 F who presents at 36.5 weeks for evaluation after a fall. Making cervical change and admit for labor. Maternal Data Information EASTON Calculator Estimated Delivery Date Method Current WG Current Estimate 03/01/23 LMP (Certain) 36w 5d Final EASTON: 03/01/23 Final EASTON Source: US >20 weeks Gestational age: 36.5 PFSH PFSH Medical History COVID-19 Frequent headaches Migraine Home Medications prenat.vits,sana,jxy-cgtg-gkwgw ( Vitamin tablet) 1 tab PO QDAY 05/21/17 [History Last Taken 01/26/23 17:00 1 TAB] famotidine 20 mg tablet (Pepcid) 20 mg PO DAILY #30 tabs 08/07/22 [Rx Last Taken 01/26/23 17:00 20 mg] Allergy/AdvReac Type Severity Reaction Status Date / Time No Known Allergies Allergy Verified 02/03/23 09:27 Family History Grandmother Diabetes Breast cancer Aunt Breast cancer Mother Diabetes Gestational Grandfather Colon cancer Father Myocardial infarction Surgical History H/O adenoidectomy History of tonsillectomy History of wisdom tooth extraction, class II edentulism Social History adopted: No household members: spouse and children housing: house current occupational status: employed 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 current occupational exposures/hazards: No pets and animals: Yes pets and animals: dog(s) history of recent travel: No sexually active: Yes Smoking Status: Never smoker second hand exposure: No alcohol intake: current details: socially substance use type: does not use well-balanced diet: about half the time caffeine: Yes Type: coffee Number of servings: 1 eating out: 1-3 times/week what type of physical activity do you participate in: walking and weight training frequency: 1-2 times per week seatbelt use: always do you feel safe at home: Yes additional social history: Cristian- [employer] staffing History 3 Elective abortions Hx Para 2 Spontaneous abortions Hx # Term Pregnancies Ectopic pregnancies Hx # Pregnancies Multiple births # of living children 2 Past Pregnancies Del. Date Name GA/Weeks Outcome Route Bth Weight Gen Labor Lgth Anesthesia Del Locatn Provider FOB Unknown 2017 Nishant 38 live - full term 7lbs Male [address] [facility] SM Cristian 09/12/20 Hilario 38 live - full term 8lbs 14oz Male e pidural [facility] GP Delivery Date: Last Updated by: Jannie Lind No complications to note Delivery Date: 09/12/20 Last Updated by: Mya Gan Midline, Perineal Extension/lac, 2nd degree Visit Details Expected Delivery Route/Plan Lsvd abor Preferences- CB/BF classes: [] labor support person: [] labor intervention preferences: [] pain management options preferred: [] cut cord/dad catch: [] : yes PP control planned: [] discussed possible routes of delivery and associated risks: [] special requests: [] Plans Covid status: discussed Flu vaccine: discussed Tdap vaccine:given Rhogam: obtained 12/11 LARC form signed: completed. Problem list reviewed and updated with the most current plan of care details and appropriate orders placed. Relevant counseling for the gestational age provided. Continue routine care and follow up unless otherwise noted in visit notes/problem list details OB Flowsheet Initial Weight: Not Recorded Date -?-?-?-?-?-?-?-?-?-?-?-?- EGA Weight BP Urine Prot -?-?-?-?-?-?-?-?-?-?-?-?- Glucose FHR FuHt Pres Dilation -?-?-?-?-?-?-?-?-?-?-?-?- Effaced St Visit Note 08/03/22 -?-?-?-?-?-?-?-?-?-?-?-?- 10w 0d 181 lb 128/82 -?-?-?-?-?-?-?-?-?-?-?-?- 170 -?--?-?-?-?-?-?-?-?-?-?-?- - CRL 2.75cm c ons with LMP 09/04/22 -?-?-?-?-?-?-?-?-?-?-?-?- 14w 4d 176 lb 130/82 Negative -?-?-?-?-?-?-?-?-?-?-?-?- Negative 150 -?-?-?-?-?-?-?-?-?-?-?-?- JV- low risk NIP T GIRL! has 2 boys at home JV- low risk NIPT GIRL! has 2 boys at home . taking pepcid without much relief. will try reglan. 09/29/22 -?-?-?-?-?-?-?-?-?-?-?-?- 18w 1d 172 lb 8 oz 116/72 Nega tive -?-?-?-?-?-?-?-?-?-?-?-?- Negative 159 -?-?-?-?-?-?-?-?-?-?-?-?- MH-No VB. Susan teresa. In [place] last week:UTI and tx w/Bactrim. Sx resolved. 10/28/22 -?-?-?-?-?-?-?-?-?-?-?-?- 22w 2d 177 lb 116/72 Trace -?-?-?-?-?-?-?-?-?-?-?-?- Negative 140 -?-?-?-?-?-?-?-?-?-?-?-?- LC- no vb/crampi ng. 28 week labs ordered. precautions given for low lying placenta. US ordered for 28 weeks 11/11/22 -?-?-?-?-?-?-?-?-?-?-?-?- 24w 2d 108 lb 2 oz 178 lb 2 oz -?-?-?-?-?-?-?-?-?-?-?-?- 140 24 -?-?-?-?-?-?-?-?-?-?-?-?- LC- second rhoga m given after bleeding yesterday. KB positive. denies traumatic event. no LC- second rhogam given afte r bleeding yesterday. KB positive. denies traumatic event. will obtain MFM consultation for co-management of viable with positive KB. LC- second rhogam given afte r bleeding yesterday. KB positive. denies traumatic event.no further vaginal bleeding today. pelvic rest, no lifting greater than 10 pounds, working from home. will obtain MFM consultation for co-management of viable with positive KB. 12/11/22 -?-?-?-?-?-?-?-?-?-?-?-?- 28w 4d 177 lb 6 oz 110/70 Trac e -?-?-?-?-?-?-?-?-?-?-?-?- Negative 140 -?-?-?-?-?-?-?-?-?-?-?-?- SM- no vb lof go od fm, is on vaginal progesterone now. 12/21/22 -?-?-?-?-?-?-?-?-?-?-?-?- 30w 0d 181 lb 2 oz 105/73 Nega tive -?-?-?-?-?-?-?-?-?-?-?-?- Negative 135 30 -?-?-?-?-?-?-?-?-?-?-?-?- LC- no vb/ctx/lo f. good fm. weekly bpp for poly. 3hgtt negative with [facility]. 01/06/23 -?-?-?-?-?-?-?-?-?-?-?-?- 32w 2d 180 lb 8 oz 120/69 Nega tive -?-?-?-?-?-?-?-?-?-?-?-?- Negative 166 33 -?-?-?-?-?-?-?-?-?-?-?-?- JV- last bpp radha wed angela was down to 18 cm. will reach out to MFM for further recommendation on following as we were initially following for + KB that was resolved. 01/22/23 -?-?-?-?-?-?-?-?-?-?-?-?- 34w 4d 186 lb 4 oz 120/79 Trac e -?-?-?--?-?-?-?-?-?-?-?-?- Negative 140 34 -?-?-?-?-?-?-?-?-?-?-?-?- SM- no vb lof go od fm no regular ctx 02/02/23 -?-?-?-?-?-?-?-?-?-?-?-?- 36w 1d 186 lb 6 oz 120/71 Trac e -?-?-?-?-?-?-?-?-?-?-?-?- Negative 140 36 Cephalic 4 -?-?-?-?-?-?-?-?-?-?-?-?- 60 -3 KW-no vb/l of/reg ctx good fm. GBS today. D/C'ed progesterone after last appt. NST FHR Rate Baby B Baseline: 125 Variability:: Moderate Accelerations:: 15 x 15 Decelerations:: None NST Reactive:: Yes FHR Category:: Category I Uterine Activity:: 2-4 ROS Constitutional Constitutional: Denies change in weight, fatigue, fever(s), headache(s), poor appetite or weakness Eyes Eyes: Denies blurry vision, change in vision, floaters, seeing flashes or spots in vision ENT HEENT: Denies dizziness, headache(s), loss taste/smell or sore throat Cardiovascular Cardiovascular: Denies chest pain, dizziness, dyspnea, irregular heart rhythm, lightheadedness, palpitations or rapid heart rate Respiratory/Chest Respiratory/Chest: Denies change in mental status, chest tightness, cough, dyspnea or breast pain Gastrointestinal Gastrointestinal: Denies anorexia, chewing difficulty, constipation, diarrhea or weight changes Genitourinary Genitourinary: Denies difficulty urinating, dysuria, flank pain, genital pain, urinary frequency or urinary urgency Musculoskeletal Musculoskeletal: Denies back pain, difficulty walking, extremity pain, joint pain, muscle cramps or muscle weakness Integumentary Integumentary: Denies lesions or unusual bruising Neurologic Neurologic: Denies abnormal movements, abnormal speech, dizziness, numbness, seizure-like activity, syncope or weakness Psychiatric Psychiatric: Denies behavioral changes, change in appetite, confusion, depression, homicidal ideation, suicidal ideation or suicidal thoughts Endocrine Endocrinology: Denies excessive sweating, polydipsia or polyuria Hematologic/Lymphatic Hematologic/Lymphatic: Denies anemia Allergic/Immunologic Allergic/Immunologic: Denies itchy eyes, lip swelling, throat swelling, tongue swelling or wheezing Vital Signs Vital Signs Vital Signs: 02/06/23 17:17 02/06/23 17:17 02/06/23 17:17 Temperature Temperature Source Pulse Rate 86 Blood Pressure 125/75 H BP Systolic 125 BP Diastolic 75 Pulse Ox 98 02/06/23 17:17 02/06/23 17:17 02/06/23 20:17 Temperature 99.0 F Temperature Source Temporal Pulse Rate Blood Pressure 125/72 H BP Systolic 125 BP Diastolic 72 Pulse Ox 02/06/23 20:17 02/06/23 20:18 02/06/23 20:18 Temperature Temperature Source Temporal Pulse Rate 80 84 Blood Pressure BP Systolic BP Diastolic Pulse Ox 02/06/23 20:18 02/06/23 20:18 Temperature 99.2 F H Temperature Source Pulse Rate Blood Pressure BP Systolic BP Diastolic Pulse Ox 100 Weight Weight: 187 lb Body Mass Index (BMI) 33.1 Physical Exam Const alert, oriented x3 and no apparent distress General Appearance: cooperative Orientation / Consciousness: awake HEENT normocephalic Neck full ROM Lymph Lymphatic: no lymphadenopathy noted Chest inspection of chest normal Resp normal respiratory effort and normal air movement Effort and Inspection: able to speak in complete sentences and symmetric chest movement GI soft to palpation and non-tender Inspection: gravid Palpation: soft; Negative for tender external exam normal Manual OB Exam: dilated 6, effaced 70 and station -1 Back/Spine normal to inspection Extremity normal to inspection and full ROM Skin no rashes or lesions noted Psych mental status grossly normal Appearance: grossly normal Speech: normal speech Labs Labs Labs: Blood Type A NEGATIVE Antibody Screen POSITIVE Hct 30.9 % (37-47) L Hgb 9.1 g/dL (12.0-15.0) L Obstetrics US Syphilis Total Ab Non-reactive VZV IgG Antibody 1973 index (Immune >165) Rubella IgG Antibody Reactive (Nonreactive) Hep Bs Antigen Non-Reactive (Nonreactive) Chlamydia DNA (JOSELO) Negative (Negative) Neisseria gonorrhoeae DNA (JOSELO) Negative (Negative) HIV 1&2 Antibody Non-Reactive (Nonreactive) Glucose 1 Hr 50 gm 132 mg/dL (70-140) Group B Strep DNA Negative (Negative) Rhogam given: Yes Assessment & Plan (1) Active labor: PLAN: Patient presents IAL, plan expectant management for , pitocin/AROM PRN if needed. Pain management: plans no epidural. GBS negative. Management of any complications: Hx Polyhydramnios, anemia, fall I have reviewed the [facility] and made any clinically relevant updates. Dr Lindsey aware of admission status and agrees with plan of care (2) Fall: COMMENT: 02/06/23 (3) Anemia affecting : COMMENT: start iron supplement on 12/21. redraw cbc in 4 weeks 01/21 (4) Polyhydramnios affecting : COMMENT: weekly bpp per MFM, resolved nl ANGELA now, still recommended to continue weekly testing (5) Vaginal bleeding during , antepartum: COMMENT: Repeat t and s and KB test 12/11 negative 11/10- to WP. Rhogam and US + Kleihgary Luna had elevated MCA and poly- following with MFM. also elevated GCT and MFM ordering 3 hr. gtt. rpt dose of rhogam on 12/11 appt Parvo and toxo titers are pending. (6) UTI in : COMMENT: In [place], given bactrim. No urine culture. Sx resolved. (7) Obesity affecting : COMMENT: passed 1 hour, encouraged healthy weight gain (8) Rh negative status during : COMMENT: rhogam at 28 weeks and PRN (9) : QUALIFIERS: Weeks of gestation: 34 weeks Qualified Code(s): Z3A.34 - 34 weeks gestation of COMMENT: NIPT low risk, carrier screening and afp declined. anatomy reviewed. (10) Supervision of normal : COMMENT: [id number] EASTON [birth year] girl Hilario Falcon. Spouse-Cristian Charges/Coding Multi Select Codes Urinary/Genital Urinary/Genital CPT Codes: No Charge
[2023-02-06] MEDS: 0.9% Saline Lock 10 ML Syringe IV (22:35)
[2023-02-06 22:49] LABS: Absolute Lymphocyte Count 2.13 X10^3/uL (0.83-4.51); Absolute Neutrophil Count 7.4 X10^3/uL (2.0-7.7); Basophil# 0.04 X10^3/uL; Basophil% 0.4 % (0-1); Eosinophil# 0.08 X10^3/uL; Eosinophils% 0.8 % (0-5); Hematocrit 29.1 % (37-47); Hemoglobin 8.6 g/dL (12.0-15.0); Lymphocyte # 2.13 X10^3/ul (0.83-4.51); Lymphocyte % 20.2 % (19-41); Mean Corp Hgb Conc 29.6 g/dL (32-36); Mean Corpuscular Hgb 21.1 pg (27.0-32.0); Mean Corpuscular Volume 71.3 fL (81-99); Mean Platelet Vol. 10.3 fl (6.2-12.0); Monocyte# 0.82 X10^3/uL; Monocyte% 7.8 % (0-10); NRBC Flagged by Analyzer 0 % (0-5); Neutrophil # 7.35 X10^3/uL (2.7-7.7); Neutrophil % 69.7 % (47-70); Platelet Count 229 K/mm3 (150-450); RBC Distribution Width CV 16.7 % (11.6-14.6); RBC Distribution Width SD 42.6 fl (35.1-43.9); Red Blood Count 4.08 M/mm3 (4.2-5.4); White Blood Count 10.5 K/mm3 (4.4-11.0)
[2023-02-06] MEDS: Betamethasone/Betamethasone 30 MG/5 ML Vial 12 MG IM (23:15)
[2023-02-06 23:44] LABS: Syphilis Antibodies Non-reactive
[2023-02-07] VITALS (45 sets, daily range): BP systolic 106–144; BP diastolic 59–81; PULSE 62–96; RESP 14–16; TEMP 36.8–37.2; O2SAT 90–100
--- NOTE | 2023-02-07 01:27 | PN.OBGYN_ITS ---
Subjective Subjective coping well with contractions current tracing: FHT: 125 Moderate variability reactive no decelerations category I tracing [place]: 2-4 minute Contractions AROM: 0123 clear SVE:/1 reviewed tracing abnormalities since last note: Telemetry monitoring started at 2310 ending at 025. Tracing a different room who was also using telemetry. At 029 switched back to main monitor in room with reassuring FHT A/P: continue position changes Start pitocin per protocol if needed after 2 hours if unchanged SVE anticipate SVE Objective Data Objective Data Vital Signs: Vital Signs Temp Pulse BP Pulse Ox 99.0 F 75 126/75 H 99 02/07/23 00:29 02/07/23 00:31 02/07/23 00:30 02/07/23 00:31 Weight: 187 lb Body Mass Index (BMI) 33.1 Lab / Micro Data 02/06/23 22:35 Labs: Laboratory Results - last 24 hr 02/06/23 18:05: Blood Type A NEGATIVE, Screen NEGATIVE, Baby's Blood Type TNP, Baby's BONNIE TNP 02/06/23 22:35: WBC 10.5, RBC 4.08 L, Hgb 8.6 L, Hct 29.1 L, MCV 71.3 L, MCH 21.1 L, MCHC 29.6 L, RDW Std Deviation 42.6, RDW Coeff of Mary 16.7 H, Plt Count 229, MPV 10.3, Immature Gran % (Auto) 1.100 H, Neut % (Auto) 69.7, Lymph % (Auto) 20.2, [place] % (Auto) 7.8, Eos % (Auto) 0.8, Baso % (Auto) 0.4, Absolute Neuts (auto) 7.4, Absolute Lymphs (auto) 2.13, Nucleated RBC % 0, Syphilis Total Ab Non-reactive, Blood Type A NEGATIVE, Antibody Screen NEGATIVE Assessment & Plan (1) Active labor: (2) Anemia affecting : COMMENT: start iron supplement on 12/21. redraw cbc in 4 weeks 01/21 (3) Polyhydramnios affecting : COMMENT: weekly bpp per [facility], resolved nl ANGELA now, still recommended to continue weekly testing (4) Vaginal bleeding during , antepartum: COMMENT: Repeat t and s and KB test 12/11 negative 11/10- to WP. Rhogam and US + Klemehreen Luna had elevated MCA and poly- following with MFM. also elevated GCT and MFM ordering 3 hr. gtt. rpt dose of rhogam on 12/11 appt Parvo and toxo titers are pending. (5) UTI in : COMMENT: In [place], given bactrim. No urine culture. Sx resolved. (6) Obesity affecting : COMMENT: passed 1 hour, encouraged healthy weight gain (7) Rh negative status during : COMMENT: rhogam at 28 weeks and PRN (8) : QUALIFIERS: Weeks of gestation: 34 weeks Qualified Code(s): Z3A.34 - 34 weeks gestation of COMMENT: NIPT low risk, carrier screening and afp declined. anatomy reviewed. (9) Supervision of normal : COMMENT: [id number] EASTON 03/[birth year] girl Hilario Falcon. Spouse-Cristian Charges/Coding Multi Select Codes Urinary/Genital Urinary/Genital CPT Codes: No Charge
[2023-02-07] MEDS: Lactated Ringers 1,000 ML 50 ML IV (01:48)
[2023-02-07] MEDS: 0.9% Saline Lock 10 ML Syringe IV ×3 (01:48→06:43)
[2023-02-07] MEDS: LACTATED RINGERS 500 ML 999 ML IV (01:52)
[2023-02-07] MEDS: Oxytocin 10 UNITS/ML Vial IM (03:41)
[2023-02-07] MEDS: Oxytocin 15 Units/NS 250ml 15 UNITS/250 ML IV.SOLN 83 UNITS IV (03:42)
[2023-02-07] MEDS: Lidocaine 1% (20 ml mdv) 20 ML Vial INFILT (03:45)
--- NOTE | 2023-02-07 04:02 | OP.PCM_ITS ---
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 redraw cbc in 4 weeks 01/21 (5) Polyhydramnios affecting : COMMENT: weekly bpp per MFM, resolved nl ANGELA now, still recommended to continue weekly testing (6) Vaginal bleeding during , antepartum: COMMENT: Repeat t and s and KB test 12/11 negative 11/10- to WP. Rhogam and US + Kleihauer Cheryl had elevated MCA and poly- following with MFM. also elevated GCT and MFM ordering 3 hr. gtt. rpt dose of rhogam on 12/11 appt Parvo and toxo titers are pending. (7) UTI in : COMMENT: In [place], given bactrim. No urine culture. Sx resolved. (8) Obesity affecting : COMMENT: passed 1 hour, encouraged healthy weight gain (9) Rh negative status during : COMMENT: rhogam at 28 weeks and PRN (10) : QUALIFIERS: Weeks of gestation: 34 weeks Qualified Code(s): Z3A.34 - 34 weeks gestation of COMMENT: NIPT low risk, carrier screening and afp declined. anatomy reviewed. (11) Supervision of normal : COMMENT: [id number] EASTON 03/[birth year] girl Sharita MONTEIRO Hilario Dillard. Spouse-Cristian Maternal Data Information EASTON Calculator Estimated Delivery Date Method Current WG Current Estimate 03/01/23 LMP (Certain) 36w 6d Final EASTON: 02/07/23 Final EASTON Source: US >20 weeks Gestational age: 36.6 weeks Vaginal Delivery Maternal Presentation Maternal Presentation: Active Labor Maternal Presentation: Patient began pushing and delivered the head in the RAFAEL presentation. The head was delivered atraumatically and no nuchal cord was identified. The anterior and posterior shoulders delivered without complication followed by the rest of the and the was placed on the maternal abdomen. Delayed cord clamping was employed for approximately 7 minutes. Cord was clamped and cut and gentle traction was applied to the cord and the placenta delivered spontaneously immediately following it was noted to be intact with three-vessel cord. The perineum and vagina were inspected and noted to have first degree lacerationwhich was repaired in the usual fashion using 3-0 Rapide. EBL was 150cc. Patient and infant tolerated delivery well. Apgars 9/10. 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: Vaishali Worthington Type of Anesthesia: None Estimated Blood Loss: 150 Time of Delivery: 03:32 Findings Presentation: Vertex Amniotic Membrane Rupture Type: Artificial Time of Membrane Rupture: 0123 Amniotic Fluid Description: Clear Placental Delivery Description: Spontaneous Placenta Disposition: [facility] Cord Vessel Description: 3 Vessels Cord Entanglement: None A Gender: Female (1 minute): 9 (5 minute): 10 Post Vaginal Delivery Medications Given After Delivery: IV Pitocin and IM Pitocin Episiotomy Description: None Laceration: 1st degree Complication Complications: None Multi Select Codes Urinary/Genital Urinary/Genital CPT Codes: 09347 Vaginal Delivery [facility]
--- NOTE | 2023-02-07 04:07 | DCINST_ITS ---
Discharge Instructions Diet Discharge Diet: No restrictions Activity Discharge Activity: Return to Normal Activity May resume sexual activity in: 6-8 weeks Dressing / Incision Call your doctor if you observe: Fever of 101 or Higher, Coldness, Increased Pain, Numbness or Tingling, Change in Color, Inability to urinate, Inability to have a bowel movement, Using more than 1 pad per hour, Shortness of breath, Dizziness, Fainting spells, Swelling in the ankles, Chest pain, Increased palpitations (irregular heartbeat), Calf discomfort and Uncontrolled pain Follow Up Care Please Follow Up With: Vaishali Worthington CNM When: Please call the office to schedule your follow up appointment in 6 weeks. If you had high blood pressure please call to schedule an appointment in 2 weeks. Test Results: Test results from this visit will be discussed in further detail at your follow- up appointment, if applicable. Discharge Plan Admission Admit Date/Time: 02/06/23 22:15 Attending Provider: Vaishali Worthington Primary Care Provider: Care Physician,Kamala Primary Discharge Orders/Prescriptions Prescriptions: No Action prenat.vits,sana,cdr-gokf-xgioi [ Vitamin] tablet 1 tab PO QDAY ferrous sulfate [iron] 325 mg (65 mg iron) tablet 325 mg PO DAILY famotidine [Pepcid] 20 mg tablet 20 mg PO DAILY Qty: 30 6RF Referrals / Follow Up: Care Physician,No Primary [Primary Care Provider] - Disposition Disposition (needs filled in before D/C Order can be placed): Home, Self Care
[2023-02-07] MEDS: Ibuprofen 600 MG Tablet PO ×2 (04:40→21:20)
[2023-02-07] MEDS: Acetaminophen 500 MG Tablet 1000 MG PO (06:18)
[2023-02-07 12:07] LABS: Kleihauer-Betke Negative
--- NOTE | 2023-02-07 16:37 | NURSING ---
Called Caryl Worthington CNM to update on negative Kleihauer-Betke result. Asked if patient needs another Rhogam since she was given one last night at 2150 due to a fall. CNM states that as long as one dose was sufficient to cover the patient based on the rhogam work-up, then the patient is considered covered. Will confirm with lab that 1 dose is sufficient. CNM will let nursing staff know if she does in fact need another Rhogam once verifying with .
--- NOTE | 2023-02-07 16:44 | NURSING ---
Called [facility] to confirm with Tracee Ferraro that patient would only need 1 dose of phogam based on the rhogam workup. Tracee from lab confirmed that it was only one dose that was needed
[2023-02-08 01:20] VITALS: BP 99/63; PULSE 87; RESP 16; TEMP 36.6; O2SAT 98
[2023-02-08 03:50] VITALS: BP 110/58; PULSE 82; RESP 16; TEMP 36.7; O2SAT 97
[2023-02-08] MEDS: Acetaminophen 500 MG Tablet 1000 MG PO (08:28)
[2023-02-08 08:31] VITALS: BP 116/72; PULSE 88; RESP 16; TEMP 36.6
--- NOTE | 2023-02-08 10:46 | PCM.PN.OB ---
Subjective Subjective Patient doing well without complaints. Tolerating PO. Ambulating and voiding without difficulty. Feeding well. Denies chest pain, shortness of breath, calf pain/swelling, fevers, chills, lightheadedness. Objective Data Objective Data Vital Signs: Vital Signs Temp Pulse Resp BP Pulse Ox O2 Del Method 97.8 F 88 16 116/72 97 Room Air 02/08/23 08:31 02/08/23 08:31 02/08/23 08:31 02/08/23 08:31 02/08/23 03:50 02/08/23 03:50 Oxygen Delivery Method Room Air Weight: 187 lb Body Mass Index (BMI) 33.1 Intake & Output: Intake and Output for Last 24 Hours 02/06/23 02/07/23 02/08/23 23:59 23:59 23:59 Intake Total 753.33 / 753.33 Output Total 650 / 650 Balance 103.33 / 103.33 Lab / Micro Data 02/06/23 22:35 Labs: Laboratory Results - last 24 hr 02/06/23 20:20: Alexsandra Baptiste Hgb Negative 02/07/23 05:05: Screen TNP, Baby's Blood Type A POSITIVE, Baby's BONNIE NEGATIVE Physical Exam Const alert and no apparent distress Resp normal respiratory effort Cardio regular rate and regular rhythm GI normal to inspection, nondistended, normoactive bowel sounds GI Narrative: fundus firm, at u, normal lochia. no clots. Extremity normal to inspection, no calf tenderness and no pedal edema Skin no rashes or lesions noted Assessment & Plan (1) Vaginal delivery: COMMENT: KW 36.6 weeks Girl Sharita, cate PLAN: s/p PPD # 1 1. routine post delivery care 2. breast feeding- support given 3. rh positive 4. rubella immune 5. plan d/c home today (2) Anemia affecting : COMMENT: start iron supplement on 12/21. redraw cbc in 4 weeks 01/21 PLAN: continue iron supplement for 30 days, with colace 100mg qd for stool softener.
== END 2023-02-08 11:30 | disposition home or self-care (01) | DRG 807 ==
LOC: WPOUT 22:19 → WP 22:19
PROVIDERS: Admitting Provider Advanced Practice Midwife; Visit Provider Advanced Practice Midwife
DX: O60.14X0 Preterm labor third trimester with preterm delivery third trimester, not applicable or unspecified (principal); Z37.0 Single live birth; O40.3XX0 Polyhydramnios, third trimester, not applicable or unspecified; O26.893 Other specified pregnancy related conditions, third trimester; O99.214 Obesity complicating childbirth; Z67.11 Type A blood, Rh negative; Z87.59 Personal history of other complications of pregnancy, childbirth and the puerperium; O99.02 Anemia complicating childbirth; O70.0 First degree perineal laceration during delivery; Z3A.36 36 weeks gestation of pregnancy; Z86.16 Personal history of COVID-19
CPT/HCPCS: 59025; 59050; 85025; 85460; 85461; 86780; 86850; 86900; 86901; 99221; J7120; A4216; G0378; J0702; J2790